=== PATIENT | male | born 1945 | race Caucasian/White ===

== ENCOUNTER 2019-06-22 10:20 | Inpatient (IN) | payer OTHER ==
[~2019-06-22] VITALS: Ht 177.8 cm; Wt 87.5 kg
[~2019-06-22 10:20] MED LIST: AMLO5 PO; ATORVASTATIN CA40 MG PO; FURO40 PO; GLIP5 PO; LOSA25 PO; METO25 PO; Omeprazole20 M1 PO; POTA8 PO; VITAMIN D32000 UNIT PO
[2019-06-22 11:21] LABS: BASOPHILS PERCENT AUTO 1 % (0-2); EOSINOPHILS ABSOLUTE AUTO 0.08 K/mm3 (0.00-0.68); EOSINOPHILS PERCENT AUTO 1 % (0-6); Hematocrit 41.6 % (37.0-53.0); IMMATURE GRAN ABSOLUTE AUTO 0.08 K/mm3 (0.00-0.10); IMMATURE GRAN PERCENT AUTO 1 % (0-1); LYMPHOCYTES ABSOLUTE AUTO 1.75 K/mm3 (0.84-5.20); LYMPHOCYTES PERCENT AUTO 12 % (21-46); MONOCYTES ABSOLUTE AUTO 1.07 K/mm3 (0.16-1.47); MONOCYTES PERCENT AUTO 7 % (4-13); Mean Corpuscular HGB 28.1 pg (26.0-34.0); Mean Corpuscular HGB Conc 31.3 g/dL (31.5-36.5); Mean Corpuscular Volume 90 fL (80-100); Mean Platelet Volume 10.4 fL (9.1-12.4); NEUTROPHILS ABSOLUTE AUTO 12.15 K/mm3 (1.96-9.15); NEUTROPHILS PERCENT AUTO 80 % (41-73); Platelet Count 358 K/mm3 (150-400); RDW Coefficient Variation 13.2 % (11.7-14.2); RDW Standard Deviation 43.5 fL (35.1-46.3); Red Blood Cell Count 4.63 M/mm3 (4.30-5.90); White Blood Cell Count 15.23 K/mm3 (4.00-11.30)
[2019-06-22 11:37] LABS: Albumin, Blood 2.9 g/dL (3.4-5.0); Albumin/Globulin Ratio 0.6 (0.8-1.8); Bilirubin, Total 0.3 mg/dL (0.1-1.0); Bun/Creatinine Ratio 13.3 (12.0-20.0); Calcium, Blood 8.7 mg/dL (8.5-10.1); Creatinine, Blood 3.98 mg/dL (0.60-1.20); Globulin, Blood 5.1 g/dL (2.2-4.0); Potassium, Blood 5.9 mmol/L (3.5-5.5)
[2019-06-22 11:39] LABS: International Normalized Ratio 0.96; Prothrombin Time Results 10.3 Sec (9.7-11.5)
[2019-06-22 11:40] LABS: pH Blood Arterial 7.15 (7.35-7.45)
[2019-06-22 11:40] LABS: Troponin I 31.3 ng/mL (0.000-0.040)
[2019-06-22 13:29] LABS: Source, Urine Catheter
[2019-06-22 13:55] LABS: Bilirubin, Urine Neg (Neg); Blood, Urine 5+ (Neg); Glucose Qualitative, Urine 4+ (Neg); Ketones, Urine 1+ (Neg); Leukocyte Esterase, Urine Neg (Neg); Nitrite, Urine Neg (Neg); Protein, Urine 3+ (Neg); Urobilinogen, Urine NORM (Normal)
[2019-06-22 14:21] LABS: Appearance, Urine Clear (Clear); Color, Urine Pale Yellow (P-Yellow)
[2019-06-22 14:33] LABS: Amorphous Light (0-Heavy); Bacteria Few /hpf; Mucus Light (0-Heavy); Red Blood Cells, Urine Not Seen /hpf (0-2); Squamous Epithelial Cells Rare /hpf (Few); White Blood Cells, Urine Not Seen /hpf (0-5)
[2019-06-22 16:56] LABS: Albumin, Blood 3.2 g/dL (3.4-5.0); Albumin/Globulin Ratio 0.6 (0.8-1.8); Bilirubin, Total 0.3 mg/dL (0.1-1.0); Bun/Creatinine Ratio 13.9 (12.0-20.0); Calcium, Blood 8.9 mg/dL (8.5-10.1); Creatinine, Blood 2.73 mg/dL (0.60-1.20); Phosphorus, Blood 2.6 mg/dL (2.5-4.9); Potassium, Blood 4.9 mmol/L (3.5-5.5); Total Protein, Blood 8.2 g/dL (6.4-8.2)
[2019-06-22 17:00] LABS: Beta-hydroxybutyrate 5.3 mg/dL (0.2-2.8); Thyroid Stimulating Hormone 2.2 uIU/mL (0.360-4.800)
[2019-06-22 18:50] LABS: Calcium, Blood 8.7 mg/dL (8.5-10.1); Creatinine, Blood 2.78 mg/dL (0.60-1.20); Potassium, Blood 5.3 mmol/L (3.5-5.5)
--- NOTE | 2019-06-22 19:00 | NUR ---
SUMMARY PT ARRIVED TO ICU THIS AFTERNOON ON BIPAP. PT ALERT AND ORIENTED. DIALYSIS CATH WITH PIGTAIL ACCESS TO RIGHT FEMORAL VEIN. TR BAND TO RIGHT RADIAL ACCESS SITE. CARDIOLOGY ADMITTED PATIENT WITH NEPHROLOGY, COOKER OPERATOR AND HOSPITALIST CONSULTED. PT HAD URGENT DIALYSIS. ORIGINAL PLAN TO REMOVE 2 L BUT PT'S BLOOD PRESSURE ONLY TOLERATED [address] AFTERNO[address] NAIR, DR. AGUILERA, DR. WOLF AND DR. MAXWELL ALL TO BEDSIDE FOR ASSESSMENTS. SEE NOTES AND ORDERS. PRESSURES AND FIO2 TITRATED DOWN ON BIPAP AND LUNG SOUNDS IMPROVING. ATTEMPTED BREAKS FROM BIPAP AND PT ONLY TOLERATES SHORT BREAKS BEFORE HE BEGINS TO BE MORE TACHYPNEIC AND HAS DECREASED OXYGEN SATURATION. SEE REPEAT ASSESSMENTS/VITALS FLOWSHEET. SINCE COMPLETION OF DIALYSIS, VITALS STABLE. TR BAND DEFLATED, NO COMPLICATIONS. PT DEMONSTRATES KNOWLEDGE OF EDUCATION ON RESTRICTIONS FOR TR BAND AND FEMORAL ACCESS SITE AND HAS EXPRESSED NEEDS APPROPRIATELY. PULSES IN ALL EXTREMITIES CONSISTENT WITH INITIAL ASSESSMENT. PT HAS DENIED CHEST PAIN SINCE ARRIVAL. FAMILY IN AND OUT OF ROOM THROUGHOUT AFTERNOON.
--- NOTE | 2019-06-22 19:15 | NUR ---
REPORT TO REDDY LOGAN TO ASSUME CARE
--- NOTE | 2019-06-22 19:30 | NUR ---
ASSESSMENT/ASSUMED CARE PT SITTING UP IN BED WITH BIPAP ON. HAD EMESIS. REMOVED BIPAP AND PLACED ON NC AT 4 LITERS. MED WITH ZOFRAN 4MG. PT DENIES CHEST PAIN OR PRESSURE. STATES,"THE NAUSEA COMES AND GOES". RT PLACED PT ON OXMIZER AT 15 LITERS FOR SPO2 87%. LUNGS COARSE CRACKLES AND DECREASED IN THE BASES. DENIES SOB. PRODUCTIVE COUGH THICK PINK TINGED. HEART RATE REGULAR. BP STABLE. RIGHT WRIST WITH TR BAND ON BUT DEFLATED. SITE CLEAR. IV 20G TO RIGHT HAND SALINE LOCKED, FLUSHED WITHOUT DIFFICULTY. 18G TO LEFT AC SALINE LOCKED, FLUSHED WITHOUT DIFFICULTY. DIALYSIS CATH TO RIGHT GROIN WITH IV PIGTAIL. DIALYSIS PORTS CLAMPED AND WRAPPED WITH COBAN. IV PIGTAIL FLUSHED WITHOUT DIFFICULTY AFTER LABS DRAWN. GARCIA CATH PATENT AND DRAINING SMALL AMT YELLOW URINE. GARCIA BAG ON ICE FOR 24 HR URINE. EDEMA NOTED TO LOWER EXT. LINEN CHANGED. PT REPORTS IMPROVMENT OF NAUSEA AFTER ZOFRAN. FAMILY TO BEDSIDE
--- NOTE | 2019-06-22 20:27 | NUR ---
PT SITTING UP IN BED WATCHING TV, DENEIS PAIN. TR BAND REMOVED AND OCC DRSG APPLIED.
--- NOTE | 2019-06-22 21:12 | NUR ---
CRITACAL LABS DR GOMEZ NOTIFIED REGARDING CRITICAL LACTIC ACID 4.7 AND TROPONIN >200.00. MD CAME TO ROOM AND EVAL PATIENT. ORDERS FOR REPEAT LACTIC ACID IN AM.
--- NOTE | 2019-06-23 04:08 | NUR ---
REASSESSMENT PT AWAKE AND COUGHING. C/O NAUSEA, MED WITH ZOFRAN. ORAL CARE DONE. PT MOVING AND TURNING SELF IN BED.
--- NOTE | 2019-06-23 05:55 | NUR ---
SHIFT SUMMARY PT RESTING QUIETLY. MED WITH ZOFRAN TWICE DURING THE NIGHT DUE TO N/V. OFF BIPAP FOR THE NIGHT DUE TO N/V. TITRATED O2 DOWN FROM 10 LITERS VIA OXMIZER TO 6 LITERS. RESP EVEN AND NONLABORED. PT DENIES SOB. OCC PRODUCTIVE COUGH WITH THICK PINK SPUTUM. HEART RATE REGULAR. DENIES CP OR PRESSURE. BP STABLE. RIGHT WRIST TR SITE WITH OCC DRSG INTACT. NO BLEEDING OR HEMATOMA. ARM BOARD IN PLACE. DIALYSIS CATH TO RIGHT GROIN, SITE CLEAR. REPORT TO ON COMING NURSE
[2019-06-23 06:01] LABS: BASOPHILS ABSOLUTE AUTO 0.02 K/mm3 (0.00-0.23); BASOPHILS PERCENT AUTO 0 % (0-2); EOSINOPHILS PERCENT AUTO 0 % (0-6); Hematocrit 33.8 % (37.0-53.0); Hemoglobin 10.9 g/dL (13.5-17.5); IMMATURE GRAN ABSOLUTE AUTO 0.11 K/mm3 (0.00-0.10); IMMATURE GRAN PERCENT AUTO 1 % (0-1); LYMPHOCYTES ABSOLUTE AUTO 1.19 K/mm3 (0.84-5.20); LYMPHOCYTES PERCENT AUTO 6 % (21-46); MONOCYTES ABSOLUTE AUTO 1.62 K/mm3 (0.16-1.47); MONOCYTES PERCENT AUTO 8 % (4-13); Mean Corpuscular HGB 27.9 pg (26.0-34.0); Mean Corpuscular HGB Conc 32.2 g/dL (31.5-36.5); Mean Platelet Volume 10.1 fL (9.1-12.4); NEUTROPHILS ABSOLUTE AUTO 16.86 K/mm3 (1.96-9.15); NEUTROPHILS PERCENT AUTO 85 % (41-73); Platelet Count 282 K/mm3 (150-400); RDW Coefficient Variation 13.5 % (11.7-14.2); RDW Standard Deviation 42.1 fL (35.1-46.3)
[2019-06-23 06:02] LABS: Mean Corpuscular Volume 87 fL (80-100)
[2019-06-23 06:25] LABS: Albumin, Blood 2.5 g/dL (3.4-5.0); Albumin/Globulin Ratio 0.6 (0.8-1.8); Bilirubin, Total 0.4 mg/dL (0.1-1.0); Bun/Creatinine Ratio 12.7 (12.0-20.0); Calcium, Blood 8.4 mg/dL (8.5-10.1); Creatinine, Blood 4.33 mg/dL (0.60-1.20); Globulin, Blood 4.4 g/dL (2.2-4.0); Magnesium, Blood 2.2 mg/dL (1.6-2.4); Phosphorus, Blood 4.5 mg/dL (2.5-4.9); Potassium, Blood 5.1 mmol/L (3.5-5.5); Total Protein, Blood 6.9 g/dL (6.4-8.2); Uric Acid, Blood 7.1 mg/dL (3.5-7.2)
--- NOTE | 2019-06-23 08:06 | NUR ---
ASSESSMENT- PT AWAKE, ALERT, DENIES COMPLAINTS, NO CP OR SOB. RESPIRATIONS UNLABORED. NSR, BP STABLE. RIGHT WRIST SPLINT, RIGHT RADIAL SITE DI, NO NUMBNESS/TINGLING, FINGERS WARM, SENSATION INTACT. STATES NO NAUSEA, C/O HUNGER. TAKING ICE CHIPS. UO VIA GARCIA CLEAR YELLOW. PIV X 2 INTACT. RIGHT FEMORAL MARHUKAR CATH DI. ABLE TO REPOSITION SELF IN BED. SCDS ON.
[2019-06-23] MEDS ORDERED: FAMO20 PO (10:24)
[2019-06-23] MEDS ORDERED: METO50ER PO (10:33)
[2019-06-23] MEDS ORDERED: TRULICITY1.5 MG/0.5 (10:40)
--- NOTE | 2019-06-23 11:30 | NUR ---
DR. NAIR HERE-ORDERS FOR TRANSFER. AM CARE-BATH DONE. ABLE TO ASSIST WITH TURNING FOR LINEN CHANGE. UPDATE TO DR. WOLF-PLANS FOR PERMACATH TOMORROW, DIALYSIS TODAY. CAN EAT
--- NOTE | 2019-06-23 12:30 | NUR ---
DR. WILEY HERE-UDPATED. SEE ORDERS.
--- NOTE | 2019-06-23 13:30 | NUR ---
DR. AGUILERA HERE-ASSESSED PT. PT DENIES COMPLAINTS. POOR APPETITE BUT DENIES NAUSEA. TO DIALYSIS. CONSULTED BY DR. WOLF-PLANS FOR PERMACATH PLACEMENT TODAY AFTER DIALYSIS.
--- NOTE | 2019-06-23 16:33 | NUR ---
PT RETURNED FROM DIALYSIS. AWAKE, ALERT, STATES HAD SOME SOB AND LIGHTHEADEDNESS IN DIALYSIS, RESOLVED NOW. NSR. LUNGS CLEAR, RESPIRATIONS UNLABORED. PRODUCTIVE COUGH-DARK BROWN OLD BLOOD SMALL AMOUNT. MAINTAINING OXYGEN SATURATIONS WITH 2 L/MIN. RIGHT RADIAL SITE DI. SITE RIGHT FEMORAL DI
--- NOTE | 2019-06-23 16:58 | NUR ---
DR. NEWBERRY HERE-EXPLAINED PERMACATH. PT AGREEABLE. VSS
--- NOTE | 2019-06-23 17:59 | NUR ---
PT DENIES COMPLAINTS. VSS. PLAN FOR LINE PLACEMENT. URINE COLLECTION BEING DONE
--- NOTE | 2019-06-23 18:10 | NUR ---
REPORT TO RAILROAD INSPECTOR STAFF. PT TO PROCEDURE LAB
--- NOTE | 2019-06-23 18:37 | NUR ---
Per admit trigger, I met with pt who was isabellane in room. He reports a good outcome to cardiac intervention and believes he will be discharged "in another day or two." He smiled easily and denied concerns. I offered prayer and continued support from chief innovation officer services.
--- NOTE | 2019-06-23 19:35 | NUR ---
ASSESSMENT/ASSUMED CARE PT BACK FROM PRODUCTION OPERATIONS INSPECTOR. DIALYSIS CATH TO RIGHT IJ. BLEEDING FROM SECONDARY INCISION SITE. PRESSURE HELD FOR 5 MIN AND PRESSURE DRSG APPLIED WITH 2 LB WT. RIGHT WRIST SMALL HEMATOMA NOTED. PRESSURE HELD AND REDUCED. ARM BOARD ON. RIGHT GROIN SITE WITH MARINO DRSG WITH BLOODY DRAINAGE, MARKED DRAINAGE. GROIN SOFT TO PALPATION. LUNGS CLEAR BUT DECREASED IN THE BASES ON 2 LITERS O2 VIA NC. HEART RATE REGULAR. BP STABLE. IV 20G TO RIGHT HAND SALINE LOCKED, FLUSHED WITHOUT DIFFICULTY. IV 18G TO LEFT AC SALINE LOCKED, FLUSHED WITHOUT DIFFICULTY. GARCIA CATH PATENT WITH SCANT AMT YELLOW URINE IN TUBE. 1+ EDEMA TO BILAT LOWER EXT. PT DENIES PAIN OR DISCOMFORT. FAMILY TO BEDSIDE.
[2019-06-23 19:59] LABS: Protein, Urine Quantitative 443.4 mg/dL (0.0-11.9)
--- NOTE | 2019-06-23 20:00 | NUR ---
DR ROHITH NEWBERRY TO ROOM. EVAL BLEEDING TO RIGHT SC DIALYSIS SITE AND RIGHT GROIN. ANSWERED QUESTIONS.
--- NOTE | 2019-06-23 20:30 | NUR ---
SITE ASSESSMENT RIGHT SC DIALYSIS SITE STABLE, NO BLEEDING. RIGHT GROIN STABLE, NO BLEEDING. SITE SOFT TO PALPATION. RIGHT WRIST STABLE. HOB UP 45 DEGREES. PT GIVEN DINNER. ARM BOARD TO RIGHT WRIST.
[2019-06-24 01:06] LABS: HBSAG SCREEN Negative (Negative); HEP A AB, IGM Negative (Negative); HEP B CORE AB, IGM Negative (Negative); HEP C VIRUS AB <0.1 (0.0-0.9)
--- NOTE | 2019-06-24 04:06 | NUR ---
REASSESSMENT PT RESTLESS IN BED, PULLING BLANKET OFF. STATES,"IT'S TO ELECTRIC MOTOR AND GENERATOR ASSEMBLER HERE". BLEEDING NOTED TO DIALYSIS CATH TO RIGHT CHEST. DRSG REMOVED AND PRESSURE HELD. NEW STEERI-STRIP, MARINO DRSG AND COVERED WITH GAUZE DRSG. 2 LB WT APPLIED. RIGHT WRIST AND GROIN STABLE. IV LEFT AC LEAKING, DC'D INTACT. LABS DRAWN. LINEN CHANGED. PT DENIES PAIN OR DISCOMFORT
[2019-06-24 04:21] LABS: Hematocrit 30.9 % (37.0-53.0); Hemoglobin 10.1 g/dL (13.5-17.5)
[2019-06-24 04:44] LABS: Albumin, Blood 2.4 g/dL (3.4-5.0); Albumin/Globulin Ratio 0.6 (0.8-1.8); Bilirubin, Total 0.4 mg/dL (0.1-1.0); Creatinine, Blood 4.76 mg/dL (0.60-1.20); Globulin, Blood 4.2 g/dL (2.2-4.0); Magnesium, Blood 2.2 mg/dL (1.6-2.4); Potassium, Blood 4.5 mmol/L (3.5-5.5); Total Protein, Blood 6.6 g/dL (6.4-8.2)
--- NOTE | 2019-06-24 05:16 | NUR ---
SHIFT SUMMARY PT RESTING QUIETLY. DENIES PAIN OR DISCOMFORT. PRESSURE HELD TO DIALYSIS CATH TO RIGHT CHEST WALL TWICE DURING THE NIGHT DUE TO BLEEDING. DRSG AT THIS TIME CD&I. RIGHT WRIST TR SITE STABLE SOFT TO PALPATION, BRUISING NOTED. ARM BOARD ON. CONT TO REMIND PT NOT TO USE RIGHT ARM. RIGHT GROIN STABLE NO FUTHER BLEEDING NOTED AFTER COMING BACK FROM STOCK PULLER. LUNGS REMAIN CLEAR BUT DECREASED IN THE BASES ON 2 LITERS O2 VIA NC. HEART RATE STABLE IN THE 90'S WITH STABLE BP. PT TURNING AND MOVING SELF IN BED. NO NAUSEA DURING THE NIGHT. GARCIA CATH WITH SCANT YELLOW URINE. REPORT TO ON COMING NURSE
--- NOTE | 2019-06-24 06:17 | NUR ---
DR WOLF INTO SEE PT. DIALYSIS TODAY
--- NOTE | 2019-06-24 09:05 | NUR ---
PT TRANSPORTED TO DIALYSIS VIA HIS BED WITH THIS AUTHOR AT 0856. FTF REPORT GIVEN TO Felicia GONZALES RN.
--- NOTE | 2019-06-24 12:20 | NUR ---
REASSESSMENT: A&O X 3, FATIGUED S/P DIALYSIS. DENIES PAIN, CP, N/V. HYPOTENSIVE 91/72, NO S/S OF BLEEDING FROM R GROIN, R WRIST, OR R VAS CATH SITES. SITTING UP EATING LUNCH, FAMILY AT BEDSIDE. O2 @ 2 L/MIN NC, NO COUGH, LUNGS CTAB. GARCIA DRAINING SMALL AMT CLEAR YELLOW URINE. PLAN IS D/C TO SNF OR [facility].
--- NOTE | 2019-06-24 12:30 | NUR ---
DR. WHITLEY AT BEDSIDE. NO STATUS CHANGE PT IS SLIGHTLY HYPOTENSIVE.
--- NOTE | 2019-06-24 13:09 | NUR ---
PT RETURNED FROM DIALYSIS AT 1210 VIA HIS BED. PER RN REPORT, 1.2 L WAS REMOVED AND PT TOLERATED WELL.
--- NOTE | 2019-06-24 14:02 | NUR ---
RECEIVED CALL FROM CARDIAC OFFICE THAT PT HAS BEEN APPROVED FOR ZOLL LIFE VEST, TO BE FITTED PRIOR TO D/C HOME.
--- NOTE | 2019-06-24 14:30 | NUR ---
LEFT MESSAGE WITH Sandra GARRETT IN D/C PLANNING ABOUT PT RECEIVING APPROVAL FOR ZOLL LIFE VEST UPON D/C. THIS AUTHOR EXPRESSED CONCERN THAT THIS MAY CHANGE PATIENT'S D/C PLAN AND WANTED TO GIVE NOTIFICATION EARLY IN THE D/C PROCESS.
--- NOTE | 2019-06-24 18:02 | NUR ---
Lungs clear t/o, Tele sinus at 96 per monitor car operator, denies chest pain or pressure. Pt post HD today, states " I feel a lot better." No changes from initial shift assessment in from ICU. Skin overall intact. Pt with no complaints of pain, able to adjust in bed to comfort. Using call light appropriately to make needs known.
--- NOTE | 2019-06-24 18:02 | NUR ---
Pt arrival to PCU at 1710 with CLIENT TECHNOLOGIES SPECIALIST at bedside. Pt alert and oriented, nauseated at time of arrival. Zofran and pepcid given per orders with stated relief. VSS. No acute concerns to note.
--- NOTE | 2019-06-24 19:55 | NUR ---
Shift Summary Pt with no acute events from time of transfer to time of change of shift. Pt with one event of nausea; medicated per emar and relief noted by pt. No events on tele. VSS. no acute changes, oriented but drowsey since arrival. when awake, pt responds appropriately. Report given to oncoming NOC RN who assumes care.
--- NOTE | 2019-06-24 23:34 | NUR ---
received report from day nurse, bed in low position, 1L via nc, bed in low position, sleepy but alert when awake, sitting up talking to friends when assessed, denied pain, currently resting quietly, when asked stated he had not had a bm since thursday, day staff recorded one, medicated as prescribed, n acute events noted thus far this shift, will continue to monitor and treat until share bsr with day nurse and pt
[2019-06-25 04:14] LABS: BASOPHILS ABSOLUTE AUTO 0.01 K/mm3 (0.00-0.23); BASOPHILS PERCENT AUTO 0 % (0-2); EOSINOPHILS PERCENT AUTO 0 % (0-6); Hematocrit 25.7 % (37.0-53.0); Hemoglobin 8.3 g/dL (13.5-17.5); IMMATURE GRAN ABSOLUTE AUTO 0.14 K/mm3 (0.00-0.10); IMMATURE GRAN PERCENT AUTO 1 % (0-1); LYMPHOCYTES ABSOLUTE AUTO 1.58 K/mm3 (0.84-5.20); LYMPHOCYTES PERCENT AUTO 8 % (21-46); MONOCYTES ABSOLUTE AUTO 2.58 K/mm3 (0.16-1.47); MONOCYTES PERCENT AUTO 13 % (4-13); Mean Corpuscular HGB 28.1 pg (26.0-34.0); Mean Corpuscular HGB Conc 32.3 g/dL (31.5-36.5); Mean Corpuscular Volume 87 fL (80-100); Mean Platelet Volume 10.8 fL (9.1-12.4); NEUTROPHILS PERCENT AUTO 79 % (41-73); Platelet Count 235 K/mm3 (150-400); RDW Coefficient Variation 13.3 % (11.7-14.2); RDW Standard Deviation 42.1 fL (35.1-46.3); Red Blood Cell Count 2.95 M/mm3 (4.30-5.90); White Blood Cell Count 20.51 K/mm3 (4.00-11.30)
[2019-06-25 04:32] LABS: Albumin, Blood 2.2 g/dL (3.4-5.0); Anion Gap 9 mmol/L (6-16); Blood Urea Nitrogen 57 mg/dL (8-24); Bun/Creatinine Ratio 11.8 (12.0-20.0); CO2, Blood 30 mmol/L (21-32); Calcium, Blood 7.7 mg/dL (8.5-10.1); Chloride, Blood 94 mmol/L (98-108); Creatinine, Blood 4.83 mg/dL (0.60-1.20); Glomerular Filtration Rate 13 (60-); Glucose, Blood 225 mg/dL (70-99); Magnesium, Blood 2.2 mg/dL (1.6-2.4); Phosphorus, Blood 4.5 mg/dL (2.5-4.9); Potassium, Blood 4.2 mmol/L (3.5-5.5); Sodium, Blood 133 mmol/L (136-145)
--- NOTE | 2019-06-25 06:52 | NUR ---
dr came in and ordered bladder training and that the sanderson be removed, denies pain, a+o, slept most of the shift with no acute changes in his status noted, sanderson draining scant amount of yellow urine, saline locked, 1L via nc, will continue to monitor and treat until share sr with day shift.
[2019-06-25 11:07] LABS: HEPATITIS C QUANTITATION HCV Not Detected IU/mL (.)
[2019-06-25 14:39] LABS: Percent Saturation 17.3 % (20.0-50.0)
--- NOTE | 2019-06-25 18:33 | NUR ---
PATIENT S/OX4, UP WITH SBA AND GB TO RESTROOM. VSS, ON RA. PATIENT HAD DIALYSIS TODAY, PERM CATH TO R CHEST. REPORT POOR APPETITE, ZOFRAN GIVEN X1 FOR UPSET STOMACH. SKIN INTACT. CALLS APPROPRATELY FOR ASSISTANCE.
--- NOTE | 2019-06-25 21:49 | NUR ---
report shared by day staff, pt doing well, no acute changes noted during day shift, call light in reach, saline locked, rm air, a+o, sitting up in bed talking to a friend, vss, see shift assessment, medicated as prescribed, will continue to monitor and treat as appropriate
[2019-06-26 04:26] LABS: Hematocrit 29.1 % (37.0-53.0); Hemoglobin 9.4 g/dL (13.5-17.5)
[2019-06-26 04:44] LABS: Albumin, Blood 2.3 g/dL (3.4-5.0); Anion Gap 12 mmol/L (6-16); Blood Urea Nitrogen 62 mg/dL (8-24); Bun/Creatinine Ratio 12.7 (12.0-20.0); CO2, Blood 28 mmol/L (21-32); Calcium, Blood 7.5 mg/dL (8.5-10.1); Chloride, Blood 93 mmol/L (98-108); Glomerular Filtration Rate 12 (60-); Glucose, Blood 200 mg/dL (70-99); Phosphorus, Blood 4.9 mg/dL (2.5-4.9); Potassium, Blood 3.7 mmol/L (3.5-5.5); Sodium, Blood 133 mmol/L (136-145)
--- NOTE | 2019-06-26 07:16 | NUR ---
a+o, call light in reach, bed in low position, saline locked, stemi site cdi, resting comfortably, vss, bsr shared with day staff and pt
[2019-06-26 08:40] LABS: BASOPHILS ABSOLUTE AUTO 0.03 K/mm3 (0.00-0.23); BASOPHILS PERCENT AUTO 0 % (0-2); EOSINOPHILS ABSOLUTE AUTO 0.06 K/mm3 (0.00-0.68); EOSINOPHILS PERCENT AUTO 0 % (0-6); Hematocrit 29.1 % (37.0-53.0); Hemoglobin 9.4 g/dL (13.5-17.5); IMMATURE GRAN ABSOLUTE AUTO 0.18 K/mm3 (0.00-0.10); IMMATURE GRAN PERCENT AUTO 1 % (0-1); LYMPHOCYTES ABSOLUTE AUTO 2.73 K/mm3 (0.84-5.20); LYMPHOCYTES PERCENT AUTO 15 % (21-46); MONOCYTES ABSOLUTE AUTO 2.86 K/mm3 (0.16-1.47); MONOCYTES PERCENT AUTO 16 % (4-13); Mean Corpuscular HGB 28.1 pg (26.0-34.0); Mean Corpuscular HGB Conc 32.3 g/dL (31.5-36.5); Mean Corpuscular Volume 87 fL (80-100); Mean Platelet Volume 11.1 fL (9.1-12.4); NEUTROPHILS ABSOLUTE AUTO 12.42 K/mm3 (1.96-9.15); NEUTROPHILS PERCENT AUTO 68 % (41-73); Platelet Count 225 K/mm3 (150-400); RDW Standard Deviation 43.8 fL (35.1-46.3); Red Blood Cell Count 3.35 M/mm3 (4.30-5.90); White Blood Cell Count 18.28 K/mm3 (4.00-11.30)
--- NOTE | 2019-06-26 18:37 | NUR ---
SHIFT SUMMARY PT HAS DECLINED ANY CP OR DISCOMFORT. LUNG SOUNDS ARE DIM THROUGHOUT WITH SLIGHT COARSNESS IN BASES, PT IS ON ROOM AIR. VITALS HAVE REMAINED STABLE. TELEMETRY SHOWS PT IN NSR. JIMBO CALLED ABOUT THE [facility] AND IT REQUIRES FITTING DAY OF DISCHARGE DATE. DR GEORGES REPORTED IT'S POSSIBLE THE PT MAY D/C TOMORROW IF WBC COUNT IMPROVES, BUT PT MAY NEED TO STAY LONGER IF NO IMPROVEMENT. THIS INFO WAS PASSED ON TO JIMBO. GROIN SITE IS SOFT. PT DID NOT RECEIVE DIALYSIS TODAY PER ORDERS.
[2019-06-27 03:57] LABS: Hematocrit 28.7 % (37.0-53.0); Hemoglobin 9.3 g/dL (13.5-17.5); Mean Corpuscular HGB 27.9 pg (26.0-34.0); Mean Corpuscular HGB Conc 32.4 g/dL (31.5-36.5); Mean Corpuscular Volume 86 fL (80-100); Mean Platelet Volume 11.2 fL (9.1-12.4); Platelet Count 232 K/mm3 (150-400); RDW Coefficient Variation 13.6 % (11.7-14.2); RDW Standard Deviation 41.7 fL (35.1-46.3); Red Blood Cell Count 3.33 M/mm3 (4.30-5.90); White Blood Cell Count 17.69 K/mm3 (4.00-11.30)
[2019-06-27 04:20] LABS: Albumin, Blood 2.3 g/dL (3.4-5.0); Anion Gap 13 mmol/L (6-16); Blood Urea Nitrogen 79 mg/dL (8-24); Bun/Creatinine Ratio 11.9 (12.0-20.0); CO2, Blood 28 mmol/L (21-32); Calcium, Blood 7.2 mg/dL (8.5-10.1); Chloride, Blood 93 mmol/L (98-108); Creatinine, Blood 6.62 mg/dL (0.60-1.20); Glomerular Filtration Rate 9 (60-); Glucose, Blood 145 mg/dL (70-99); Magnesium, Blood 2.2 mg/dL (1.6-2.4); Phosphorus, Blood 6.3 mg/dL (2.5-4.9); Potassium, Blood 3.4 mmol/L (3.5-5.5); Sodium, Blood 134 mmol/L (136-145)
--- NOTE | 2019-06-27 06:37 | NUR ---
SHIFT SUMMARY PT A&O; DENIES CHEST PAIN; VSS; O2 SATS >93 ON RA; NO ACUTE CHANGES THIS SHIFT; SLEPT SEVERAL HOURS IN BETWEEN INTERVENTIONS; AT BEDSIDE THIS AM; DENIES NEEDS AT THIS TIME; CALL LIGHT IN REACH; BED IN LOWEST POSITION; WILL CONTINUE TO MONITOR CLOSELY UNTIL HAND OFF TO DAY SHIFT RN.
[2019-06-27 07:07] LABS: ANTIGLOMERULAR BM AB 2 units (0-20)
[2019-06-27 13:07] LABS: ANA DIRECT Negative (Negative); ANTIMYELOPEROXIDASE (MPO) ABS <9.0 U/mL (0.0-9.0); ANTIPROTEINASE 3 (PR-3) ABS <3.5 U/mL (0.0-3.5); ATYPICAL PANCA <1:20 titer (Neg:<1:20); CYTOPLASMIC (C-ANCA) <1:20 titer (Neg:<1:20); PERINUCLEAR (P-ANCA) <1:20 titer (Neg:<1:20)
[2019-06-27 16:06] LABS: A/G RATIO 0.9 (0.7-1.7); ALBUMIN 2.8 g/dL (2.9-4.4); ALPHA-1-GLOBULIN 0.3 g/dL (0.0-0.4); BETA GLOBULIN 1.1 g/dL (0.7-1.3); GAMMA GLOBULIN 0.9 g/dL (0.4-1.8); GLOBULIN, TOTAL 3.3 g/dL (2.2-3.9); IMMUNOGLOBULIN A, QN, SERUM 663 mg/dL (61-437); IMMUNOGLOBULIN G, QN, SERUM 877 mg/dL (700-1600); IMMUNOGLOBULIN M, QN, SERUM 92 mg/dL (15-143); M-SPIKE Not Observed g/dL (Not Observed); PROTEIN, TOTAL, SERUM 6.1 g/dL (6.0-8.5)
--- NOTE | 2019-06-27 18:45 | NUR ---
SHIFT SUMMARY PT IS A&O X4, DECLINES ANY CP. PT WENT TO DIALYSIS TODAY AND TOLERATED WELL. PLAN IS TO POTENTIALLY DISCHARGE TOMORROW IF OUTPATIENT DIALYSIS GETS SET UP. [facility] WAS FITTED TONIGHT IN PREPERATION FOR DISCHARGE. VITALS HAVE REMAINED STABLE. PT WAS STATUS CHANGED TO MEDICAL WITHOUT TELE. NO AVAILABLE MEDICAL BEDS AT THIS TIME.
--- NOTE | 2019-06-27 19:40 | NUR ---
ASSUMED CARE: RECEIVED REPORT FROM REDDY TATUM. ASSUMED CARE OF PT. IN NO ACUTE DISTRESS AT THIS TIME, RESTING COMFORTABLY. DENIES ANY NEEDS AT THIS TIME. CALL LIGHT AND POSSESSIONS IN REACH, WILL CONTINUE TO MONITOR.
[2019-06-28 03:58] LABS: BASOPHILS ABSOLUTE AUTO 0.03 K/mm3 (0.00-0.23); BASOPHILS PERCENT AUTO 0 % (0-2); EOSINOPHILS ABSOLUTE AUTO 0.55 K/mm3 (0.00-0.68); EOSINOPHILS PERCENT AUTO 3 % (0-6); Hemoglobin 8.9 g/dL (13.5-17.5); IMMATURE GRAN ABSOLUTE AUTO 0.26 K/mm3 (0.00-0.10); IMMATURE GRAN PERCENT AUTO 2 % (0-1); LYMPHOCYTES ABSOLUTE AUTO 2.01 K/mm3 (0.84-5.20); LYMPHOCYTES PERCENT AUTO 13 % (21-46); MONOCYTES ABSOLUTE AUTO 3.04 K/mm3 (0.16-1.47); MONOCYTES PERCENT AUTO 19 % (4-13); Mean Corpuscular HGB 27.8 pg (26.0-34.0); Mean Corpuscular HGB Conc 31.8 g/dL (31.5-36.5); Mean Corpuscular Volume 88 fL (80-100); Mean Platelet Volume 10.9 fL (9.1-12.4); NEUTROPHILS ABSOLUTE AUTO 10.24 K/mm3 (1.96-9.15); NEUTROPHILS PERCENT AUTO 64 % (41-73); Platelet Count 232 K/mm3 (150-400); RDW Coefficient Variation 13.7 % (11.7-14.2); RDW Standard Deviation 42.7 fL (35.1-46.3); White Blood Cell Count 16.13 K/mm3 (4.00-11.30)
[2019-06-28 04:16] LABS: Bun/Creatinine Ratio 9.9 (12.0-20.0); Calcium, Blood 7.7 mg/dL (8.5-10.1); Creatinine, Blood 5.15 mg/dL (0.60-1.20); Potassium, Blood 3.8 mmol/L (3.5-5.5)
--- NOTE | 2019-06-28 07:30 | NUR ---
PT RESTING IN BED COMFORTABLY, IN NO ACUTE DISTRESS. VS STABLE, SLEPT T/O SHIFT. WAS MONITORED EVERY 1-2 HOURS WITH NEEDS MET, DENIES ANY NEEDS AT THIS TIME. CALL LIGHT AND POSSESSIONS IN REACH, BED IN LOW POSITION.
[2019-06-28] MEDS ORDERED: ASPI81CH PO (09:46)
[2019-06-28] MEDS ORDERED: LISI5 PO (09:46)
[2019-06-28] MEDS ORDERED: TICA90TA PO (09:47)
[2019-06-28] MEDS ORDERED: AZIT250 PO (09:49)
[2019-06-28] MEDS ORDERED: CEFU500T30 PO (09:52)
--- NOTE | 2019-06-28 16:48 | NUR ---
DISCHARGE SUMMARY PT EDUCATED ON DISCHARGE INSTRUCTIONS, MEDICATIONS AND FOLLOW UP APPOINTMENTS. PT MEDICATIONS CALLED INTO [facility] PER PT REQUEST. RIGHT WRIST SITE AND RIGHT GROIN SITE; NO CHANGES T/O SHIFT. VSS. LIFE VEST IN PLACE. PT LEFT ROOM VIA WHEELCHAIR AT 1340, PT STABLE UPON DISCAHRGE.
== END 2019-06-28 13:40 | disposition home or self-care (01) | DRG 853 ==
LOC: ER 10:20 → ICUW 10:25 → PCU 06-24 17:15
PROVIDERS: Emergency Medicine; Hospitalist; Internal Medicine; Internal Medicine Nephrology; ADMIT Internal Medicine Interventional Cardiology
PROC: 4A023N7 Measurement of Cardiac Sampling and Pressure, Left Heart, Percutaneous Approach (ICD-10-PCS; principal; 2019-06-22)
PROC: 027135Z Dilation of Coronary Artery, Two Arteries with Two Drug-eluting Intraluminal Devices, Percutaneous Approach (ICD-10-PCS; 2019-06-22)
PROC: B2111ZZ Fluoroscopy of Multiple Coronary Arteries using Low Osmolar Contrast (ICD-10-PCS; 2019-06-22)
PROC: 0JH63XZ Insertion of Tunneled Vascular Access Device into Chest Subcutaneous Tissue and Fascia, Percutaneous Approach (ICD-10-PCS; 2019-06-23)
PROC: 5A1D70Z Performance of Urinary Filtration, Intermittent, Less than 6 Hours Per Day (ICD-10-PCS; 2019-06-23)
PROC: 5A1D70Z Performance of Urinary Filtration, Intermittent, Less than 6 Hours Per Day (ICD-10-PCS; 2019-06-24)
PROC: 5A1D70Z Performance of Urinary Filtration, Intermittent, Less than 6 Hours Per Day (ICD-10-PCS; 2019-06-25)
PROC: 5A1D70Z Performance of Urinary Filtration, Intermittent, Less than 6 Hours Per Day (ICD-10-PCS; 2019-06-26)
DX: A41.9 Sepsis, unspecified organism (principal); I21.09 ST elevation (STEMI) myocardial infarction involving other coronary artery of anterior wall; I50.21 Acute systolic (congestive) heart failure; N18.6 End stage renal disease; J96.01 Acute respiratory failure with hypoxia; I13.0 Hypertensive heart and chronic kidney disease with heart failure and stage 1 through stage 4 chronic kidney disease, or unspecified chronic kidney disease; I13.2 Hypertensive heart and chronic kidney disease with heart failure and with stage 5 chronic kidney disease, or end stage renal disease; N17.9 Acute kidney failure, unspecified; E87.2 Acidosis; M62.82 Rhabdomyolysis; N18.3 Chronic kidney disease, stage 3 (moderate); E11.22 Type 2 diabetes mellitus with diabetic chronic kidney disease; Z79.4 Long term (current) use of insulin
CPT/HCPCS: 36415; 36430; 36556; 36558; 71045; 76770; 76937; 80048; 80053; 80069; 80074; 81001; 81050; 82010; 82550; 82607; 82728; 82746; 82784; 82803; 82947; 83036; 83516; 83520; 83540; 83550; 83605; 83735; 84100; 84145; 84156; 84165; 84443; 84484; 84550; 85014; 85018; 85025; 85027; 85347; 85610; 85730; 86038; 86256; 86334; 86335; 86850; 86900; 86901; 86920; 87040; 87522; 92978; 93005; 93010; 93306; 93458; 94660; 96374; 97110; 97116; 97162; 97165; 97535; 99152; 99153; 99285-25; A9270-GY; C1725; C1750; C1752; C1753; C1769; C1874; C1887; C1894; C9601; C9606; J0696; J0881; J1644; J1940; J2250; J2370; J2405; J3010; J7030; J7040; P9016; Q9967

== ENCOUNTER 2019-07-16 10:48 | Inpatient (IN) | payer OTHER ==
[~2019-07-16] VITALS: Ht 177.8 cm; Wt 83.1 kg
[~2019-07-16 10:48] MED LIST changes: +AZIT250 PO; +Aspir 8181 MG PO; +CEFU500T30 PO; +FAMO20 PO; +LISI5 PO; +METO50ER PO; +TICA90TA PO; +TRULICITY1.5 MG/0.5 SC
[2019-07-16 11:19] LABS: BASOPHILS ABSOLUTE AUTO 0.06 K/mm3 (0.00-0.23); BASOPHILS PERCENT AUTO 1 % (0-2); EOSINOPHILS ABSOLUTE AUTO 0.04 K/mm3 (0.00-0.68); EOSINOPHILS PERCENT AUTO 0 % (0-6); Hematocrit 23.1 % (37.0-53.0); IMMATURE GRAN ABSOLUTE AUTO 0.11 K/mm3 (0.00-0.10); IMMATURE GRAN PERCENT AUTO 1 % (0-1); LYMPHOCYTES ABSOLUTE AUTO 1.72 K/mm3 (0.84-5.20); LYMPHOCYTES PERCENT AUTO 13 % (21-46); MONOCYTES ABSOLUTE AUTO 1.02 K/mm3 (0.16-1.47); MONOCYTES PERCENT AUTO 8 % (4-13); Mean Corpuscular HGB 27.7 pg (26.0-34.0); Mean Corpuscular HGB Conc 30.3 g/dL (31.5-36.5); Mean Corpuscular Volume 91 fL (80-100); Mean Platelet Volume 10.1 fL (9.1-12.4); NEUTROPHILS ABSOLUTE AUTO 10.07 K/mm3 (1.96-9.15); NEUTROPHILS PERCENT AUTO 77 % (41-73); Platelet Count 446 K/mm3 (150-400); Red Blood Cell Count 2.53 M/mm3 (4.30-5.90); White Blood Cell Count 13.02 K/mm3 (4.00-11.30)
[2019-07-16 11:34] LABS: Albumin, Blood 2.1 g/dL (3.4-5.0); Albumin/Globulin Ratio 0.4 (0.8-1.8); Bilirubin, Total 0.4 mg/dL (0.1-1.0); Bun/Creatinine Ratio 14.6 (12.0-20.0); Calcium, Blood 8.3 mg/dL (8.5-10.1); Creatinine, Blood 3.49 mg/dL (0.60-1.20); Globulin, Blood 4.7 g/dL (2.2-4.0); Potassium, Blood 4.4 mmol/L (3.5-5.5); Total Protein, Blood 6.8 g/dL (6.4-8.2)
[2019-07-16 13:02] LABS: Adenovirus Not Detected (NOT DETECT); Bordetella pertussis Not Detected (NOT DETECT); Chlamydophila pneumoniae Not Detected (NOT DETECT); Coronavirus 229E Not Detected (NOT DETECT); Coronavirus HKU1 Not Detected (NOT DETECT); Coronavirus NL63 Not Detected (NOT DETECT); Coronavirus OC43 Detected (NOT DETECT); Human Metapneumovirus Not Detected (NOT DETECT); Human Rhinovirus/Enterovirus Not Detected (NOT DETECT); Influenza A/2009-H1 Not Detected (NOT DETECT); Influenza A/H1 Not Detected (NOT DETECT); Influenza A/H3 Not Detected (NOT DETECT); Influenza B Not Detected (NOT DETECT); Mycoplasma pneumoniae Not Detected (NOT DETECT); Parainfluenza Virus 1 Not Detected (NOT DETECT); Parainfluenza Virus 2 Not Detected (NOT DETECT); Parainfluenza Virus 3 Not Detected (NOT DETECT); Parainfluenza Virus 4 Not Detected (NOT DETECT); Respiratory Syncytial Virus Not Detected (NOT DETECT)
[2019-07-16] MEDS ORDERED: TOUJEO SOL300 UNIT/1 SC (13:24)
[2019-07-16] MEDS ORDERED: MIRALAX17 GM PO (13:25)
[2019-07-16 17:41] LABS: Test Name COVID-19
--- NOTE | 2019-07-16 18:23 | NUR ---
SHIFT SUMMARY 1325 RECEIVED PT TO PCU 3 FROM ER. PT ADMITTED FOR RESP FAILURE WITH HYPOXIA. RECEIVED REPORT FROM MEKA BLAKELY. PT TO ER VIA EMS WITH C/O FEVER, COUGH, AND "WEIRD BREATHING". PER REPORT, PT HAD FEVER AT HOME 99.9, BUT NONE NOTED HERE. PT WITH HX OF ESRD; ON DIALYSIS MWF, HAVING DIALYSIS YESTERDAY. PT ONLY VOIDING 1-2 X'S PER/DAY. HX OF [place] WITH STENTS PLACED 2 WKS AGO. BIOX IN ER MID 80'S ON RA. PT PLACED ON 2L NC AND CURRENTLY ON 1.5L. PER REPORT, PT IS POOR HISTORIAN AND LIVES WITH HIS BROTHER AND SISTER IN LAW. PT HAD BEEN SLEEPING UPRIGHT AT HOME D/T BEING UNABLE TO BREATHE AND SHALLOW BREATHING. SISTER IN LAW REPORTED PT HAS NOT BEEN EATING MUCH SINCE STENTS PLACED. PERMA CATH TO RCW. DIALYSIS ORDERED AND PT RECEIVED IN BEFORE BEING TX TO PCU 16 IN AIRBORN PRECAUTIONS. PT TOLERATED DIALYSIS WELL AND RECEIVED 1 UNIT PRBC'S WITH DIALYSIS. IV ABX CURRENTLY INFUSING PER EMAR. PT RESTING QUIETLY WATCHING TV. NO C/O. DENIED FURTHER NEEDS. UA STILL NEEDED; PT AWARE. SON TO COME IN AM TO ASSIST PT WITH HRT MX. CALL LT IN REACH.
--- NOTE | 2019-07-16 21:55 | NUR ---
PROVIDER CALLED DR WOLF REGARDING PT'S CONSISTENT SBP'S >100. UPDATED DR THAT PT HAD DIALYSIS TODAY, HAD NO FLUIDS INFUSING, AND IS ASYMPTOMATIC. ORDERS FOR MIDODRINE AND ORDERS TO HOLD AM METOPROLOL UNDER CERAIN PARAMETERS. SEE ORDERS AND NURE NOTIFY.
--- NOTE | 2019-07-17 00:05 | NUR ---
PROVIDER DR WOLF CALLED REGARDING POST MIDODRIN BP OF 85/48. PT ASYMPTOMATIC. NO FLUIDS. ESRD. NO ORDERS GIVEN AT THIS TIME.
--- NOTE | 2019-07-17 03:17 | NUR ---
DAYLIGHT SAVINGS TIME. TIME SWITCH FROM 0200 TO 0300. 0
[2019-07-17 04:35] LABS: Hematocrit 18.5 % (37.0-53.0)
[2019-07-17 04:48] LABS: Hemoglobin 5.6 g/dL (13.5-17.5)
[2019-07-17 04:54] LABS: Albumin, Blood 1.7 g/dL (3.4-5.0); Anion Gap 10 mmol/L (6-16); Blood Urea Nitrogen 63 mg/dL (8-24); Bun/Creatinine Ratio 19.3 (12.0-20.0); CO2, Blood 28 mmol/L (21-32); Calcium, Blood 7.5 mg/dL (8.5-10.1); Chloride, Blood 99 mmol/L (98-108); Creatinine, Blood 3.27 mg/dL (0.60-1.20); Glomerular Filtration Rate 20 (60-); Glucose, Blood 227 mg/dL (70-99); Magnesium, Blood 1.8 mg/dL (1.6-2.4); Phosphorus, Blood 3.5 mg/dL (2.5-4.9); Potassium, Blood 4.7 mmol/L (3.5-5.5); Sodium, Blood 137 mmol/L (136-145); Vancomycin, Random 14.5 ug/mL
--- NOTE | 2019-07-17 05:27 | NUR ---
END OF SHIFT SUMMARY P AXO, SOMEWHAT LETHARGIC. PT HAS CONTINUED TO BE HYPOTENSIVE. MULTIPLE CALLS TO DR WOLF, PT PLACED ON MIDODRINE. HGB DROPED SIGNIFICANTLY THIS SHIFT, ORDERS RECEIVED FOR A TOTAL OF 3UPRBC, 1U NOW AND 2U IN DIALYSIS. NO OBVIOUS SIGNS OF BLEEDING NOTED. PT HAS REMAINED ON 2 -3L NC, SPO2>94%. PT HS SLEPT T/O MAJORITY OF SHIFT. PT TO RECEIVE DIALYSIS TODAY. LUNGSOUNDS DIM, LITTLE WHEEZING NOTED. PT HAS BEEN ABLE TO EXPRESS NEEDS THIS SHIFT BUT DOES APPEAR FORGETFUL. PT IS NOT IMPULSIVE. HAS BEEN COOEPRATIVE WITH STAF. REMAINS IN AIRBORNE PRECAUTIONS FOR CORONAvirus rule out. will continue to monitor until shift change.
--- NOTE | 2019-07-17 07:00 | NUR ---
PROVIDER CALLED DR WOLF REGARDING PT'S DROP IN HGB TO <6. ORDERS RECEIVED FOR 1UPRBC NOW AND 2U PRBC DURING DIALYSIS.
--- NOTE | 2019-07-17 07:09 | NUR ---
PROVIDER WOLF TO ROOM. UPDATED ABOUT LACK OF STOOL THIS SHIFT, ORDERS RECEIVED FOR PROTONIX, CT ABD, AND STOOL GUIAC WELL A GI CONSULT IF GUIAC RETURN POSITIVE.
--- NOTE | 2019-07-17 08:43 | NUR ---
ASSUMED CARE OF PT AT 0830 Assumed care of pt at 0830 from Phil BLAKELY. Pt in airborne precautions due to r/o COVID-19. Pt recieiving PRBCs. Upon entering room, pump distally occluded. Pt 280 mL left to infuse. Pt pale and dusky in appearance. Tachypnic with RR 36-40. Hypotensive. Rate of blood increased. Pt on 3 LPM NC. SpO2 100%. Pt's son asked to visit. No N-95 masks or PAPR available. This RN premitted pt's son to visit for 5 minutes while wearing surgical mask. Son stated that pt's life vest battery is changed every morning between 8 and 9 am. Son regularly assists pt with this activity and offered to do it this morning. This RN allowed son to do this activity for pt. Fully charged battery shown on display. This RN discussed pt's condition with tanker driver Leslie. cnc service engineer Leslie to call Dr Rodriguez and update.
--- NOTE | 2019-07-17 08:55 | NUR ---
DR HUBBARD IN ROOM TO SEE PT Pt receiving blood at maximum rate on pump. Pt tolerating well. BP improved. Plan for H&H recheck after this unit of blood. Dr Hubbard states she would like pt moved to ICU. Disucussed that pt was recently admitted for STEMI and had stents placed to LAD and diag. Provider stated pt to stay on Brilinta. Hold aspirin and heparin at this time.
--- NOTE | 2019-07-17 09:00 | NUR ---
CERTIFIED NEURODIAGNOSTIC TECHNOLOGIST Delonda states she will provide dialysis for this patient this afternoon.
--- NOTE | 2019-07-17 09:25 | NUR ---
AM MEDS This RN attempted to give pt AM midodrine. Pt started coughing and choking after drinking water to take midodrine.
--- NOTE | 2019-07-17 09:52 | NUR ---
NEW ORDERS FROM DR HUBBARD AND TRANSFER TO ICU This RN placed call to Dr Hubbard to inquire about cardiology consultation for medication management. Provider also stated to consult GI. This RN spoke to Dr Frey. Dr Frey stated "Hold brilinta and aspirin for now". Provider stated he will be in to see pt this afternoon. GI consult called to answering service by recessing machine operator Denise.
--- NOTE | 2019-07-17 10:02 | NUR ---
FAMILY NOTIFIED OF TRANSFER This RN notified pt's son of transfer to ICU.
[2019-07-17 10:36] LABS: International Normalized Ratio 1.19; Prothrombin Time Results 12.6 Sec (9.7-11.5)
--- NOTE | 2019-07-17 10:36 | NUR ---
TRANSFERRED TO ICU AT 0940. BEDSIDE REPORT FROM JORDY BLAKELY. PT RESPONSES TO VERBAL STIMULI, LETHARGIC. KEEPS EYES CLOSED. STATES HE IS IN [facility] AND IT IS 2012. DENIES COMPLAINTS OTHER THAN BEING COLD. PT PALE. ECCHYMOSIS TO ABD, BILATERAL ARMS. DELAYED CAP REFILL. TACHPENIC, RESP RATE 40. LUNGS DIMINISHED IN BASES. MOVES EXTREMITIES. DARK STOOLS IN ATTENDS. WILL SEND FOR GUIAC. ABD SOFT, ROUND, NON TENDER. BT X 4. LIFE VEST IN PLACE. PT HYPOTENSIVE. TRANSFUSING 2ND UNIT OF PBRCS. PLAN FOR 2 ADDITIONAL UNITS c DIALYSIS AT APPROX 1330. PENDING CT SCAN. WILL CONTINUE TO MONITOR.
[2019-07-17 10:42] LABS: Albumin, Blood 1.8 g/dL (3.4-5.0); Albumin/Globulin Ratio 0.5 (0.8-1.8); Bilirubin, Direct 0.1 mg/dL (0.0-0.3); Bilirubin, Indirect 0.4 mg/dL (0.1-0.7); Bilirubin, Total 0.5 mg/dL (0.1-1.0); Globulin, Blood 3.7 g/dL (2.2-4.0); Total Protein, Blood 5.5 g/dL (6.4-8.2)
[2019-07-17 10:43] LABS: Percent Saturation 61.5 % (20.0-50.0)
--- NOTE | 2019-07-17 12:30 | NUR ---
PT SEEN BY GO NEELY AND HIEU. GI PLAN, MONITOR, NO INTERVENTIONS AT THIS TIME D/T PT BEING UNSTABLE FOR PROCEDURE. CARDIAC, OK FOR REMOVAL OF LIFE VEST, CONTINUE BRILLENTA. DOBUTAMINE STARTED FOR CARDIAC OUTPUT AND BP. WILL TITRATE FOR MAP>65. CONTINUE TO TREND H&H. LAB DRAW DUE NOW.
[2019-07-17 13:22] LABS: Hematocrit 21.5 % (37.0-53.0); Hemoglobin 6.9 g/dL (13.5-17.5)
[2019-07-17 14:31] LABS: Stool Occult Blood Guaiac 1 Pos (Neg)
--- NOTE | 2019-07-17 18:00 | NUR ---
SHIFT SUMMARY PT TRANSFERRED TO ICU THIS SHIFT. CONSULTING GROUPS, GI, CARDIOLOGY, SHIPS EQUIPMENT ENGINEER. PT TRANSFUSED 4 UNITS OF PRBCS THIS SHIFT. PICC LINE INSERTED TO GARTH. CURRENTLY TRANSFUSING LEVOPHED 15 MCG/MIN AND DOBUTAMINE 10 MCG/KG/MIN THROUGH PICC LINE. CONTINUED TO TITRATE FOR MAP >65. HR INCREASED FROM 80'S TO 110-120'S AFTER DOBUTAMINE GTT STARTED. PT REMAINED ON 1L O2 VIA NC. LUNGS DIMINISHED IN BASES c OCCASIONAL CRACKLES, DECREASED RATE OF PRBCS AT THAT TIME AND NOW RESOLVED. PT REMAINS PALE AND COOL. MENTATION IMPROVED, PT ORIENTED TO PLACE AND KNOWS PRESIDENT, DOES NOT KNOW YEAR. FOLLOWS SIMPLE DIRECTIONS. DENIES COMPLAINTS. PT HAD THREE SMALL BLACK TARRY STOOLS THIS SHIFT. SENT TO LAB FOR GUIAC, POSITIVE. DR ORTIZ AWARE. DIALYSIS POSTPONED TODAY, LUCIANO AWARE, PLAN FOR DIALYSIS TOMORROW IF STABLE. CT ORDERED BY DR WOLF TO ASSESS FOR RETROPERITENEAL BLEEDING. UNABLE TO TAKE PT AT THIS TIME D/T STABILITY. DISCUSSED c CHARGE NURSE. PT ON AIRBORNE PRECAUTIONS TO R/O COVID-19. c PERMISSION FROM PT, CALL PLACED TO JASBIR, SON, TO DISCUSS PT CARE. PT STATES THAT JASBIR IS HEALTHCARE DECISION MAKER. PT REQUESTING TO NOT BE INTUBATED, BUT HAVE CPR. D/T PT'S MENTATION, NO CHANGE MADE TO CODE STATUS AT THIS TIME. DISCUSSED c JASBIR. JASBIR STATES HE WILL COME TO THE [facility] TO DISCUSS CARE PLAN AND CODE STATUS. WILL CONTINUE TO MONITOR UNTIL REPORT TO ONCOMING NURSE.
--- NOTE | 2019-07-17 18:46 | NUR ---
NOTIFIED BY LAB, COVID-19 UNDETECTED. REMOVED PT FROM AIRBORNE ISOLATION. NOTIFIED CHARGE NURSE. PT COLOR IMPROVING. CONTINUES TO BE PALE BUT WARMER. PT ALSO MORE ALERT. 4TH UNIT OF PRBCS COMPLETE, FLUSHING AT THIS TIME. ORDER PLACED FOR REPEAT H&H AT 1945. PT CONTINUED TO HAVE SEAN VASQUES RESP. O2 SATS DECREASE AFTER PERIODS OF APNEA LASTING UP TO 30 SECS. PT THEN RETURNS TO BEING TACHYPNEC.
--- NOTE | 2019-07-17 19:30 | NUR ---
OUT OF AIRBORN ISOLATION PER DESMOND RN, NURSE ANESTHETIST, AND DOCTOR LUU
[2019-07-17 20:03] LABS: Hematocrit 29.1 % (37.0-53.0); Hemoglobin 9.9 g/dL (13.5-17.5)
--- NOTE | 2019-07-17 20:40 | NUR ---
DOCTOR LUCIANO SALCIDO'D CT OF ABD DUE TO KNOWING THAT PATIENT HAS GI BLEED.
--- NOTE | 2019-07-17 21:15 | NUR ---
PATIENT SLEEPING WHEN UNDISTURBED, AWAKENS TO SLIGHT STIMULI, FALLING BACK TO SLEEP MID CONVERSATION. ANSWERING SIMPLE QUESTIONS AND FOLLOWING DIRECTIONS. PATIENT HAVING SLEEP APNEA, ORDER OBTAINED FOR CPAP/BIPAP PRE PROTOCOL FROM DOCTOR HIEU. HYPOTENSION CONTINUES LEVOPHED AND DOBUTAMINE DRIPS CONTINUE TO TITRATE FOR MAP > 65. POST TRANSFUSION H&H STABLE, NEXT CBC IN AM. PATIENT CONTINUES TO PASS BLACK/BROWN LOOSE BM. PERMA CATH TO RIGHT CHEST WALL DRESSING CD&I.
[2019-07-18 03:25] LABS: BASOPHILS ABSOLUTE AUTO 0.11 K/mm3 (0.00-0.23); BASOPHILS PERCENT AUTO 1 % (0-2); EOSINOPHILS ABSOLUTE AUTO 0.95 K/mm3 (0.00-0.68); EOSINOPHILS PERCENT AUTO 5 % (0-6); Hematocrit 26.4 % (37.0-53.0); IMMATURE GRAN ABSOLUTE AUTO 0.27 K/mm3 (0.00-0.10); IMMATURE GRAN PERCENT AUTO 2 % (0-1); LYMPHOCYTES ABSOLUTE AUTO 2.71 K/mm3 (0.84-5.20); LYMPHOCYTES PERCENT AUTO 15 % (21-46); MONOCYTES ABSOLUTE AUTO 1.89 K/mm3 (0.16-1.47); MONOCYTES PERCENT AUTO 11 % (4-13); Mean Corpuscular HGB 29.5 pg (26.0-34.0); Mean Corpuscular HGB Conc 34.1 g/dL (31.5-36.5); Mean Platelet Volume 9.8 fL (9.1-12.4); NEUTROPHILS ABSOLUTE AUTO 11.76 K/mm3 (1.96-9.15); NEUTROPHILS PERCENT AUTO 67 % (41-73); NRBC ABSOLUTE 0.08 K/mm3 (0.00-0.02); NRBC Auto 0.5 /100 WBC (0.0-0.2); Platelet Count 271 K/mm3 (150-400); RDW Coefficient Variation 15.1 % (11.7-14.2); RDW Standard Deviation 46.9 fL (35.1-46.3); Red Blood Cell Count 3.05 M/mm3 (4.30-5.90); White Blood Cell Count 17.69 K/mm3 (4.00-11.30)
[2019-07-18 03:35] LABS: Mean Corpuscular Volume 87 fL (80-100)
[2019-07-18 03:43] LABS: Albumin, Blood 1.7 g/dL (3.4-5.0); Albumin/Globulin Ratio 0.5 (0.8-1.8); Bilirubin, Direct 0.1 mg/dL (0.0-0.3); Bilirubin, Indirect 0.3 mg/dL (0.1-0.7); Bilirubin, Total 0.4 mg/dL (0.1-1.0); Bun/Creatinine Ratio 20.4 (12.0-20.0); Calcium, Blood 7.4 mg/dL (8.5-10.1); Creatinine, Blood 4.47 mg/dL (0.60-1.20); Globulin, Blood 3.2 g/dL (2.2-4.0); Magnesium, Blood 1.9 mg/dL (1.6-2.4); Phosphorus, Blood 5.2 mg/dL (2.5-4.9); Potassium, Blood 3.6 mmol/L (3.5-5.5); Total Protein, Blood 4.9 g/dL (6.4-8.2)
--- NOTE | 2019-07-18 06:34 | NUR ---
SUMMARY PATIENT CONTINUES TO BE LETHARGIC, AWAKENS TO SLIGHT STIMULI, ATTEMPTS TO ASSIST WITH REPOSITIONING. BIPAP IN PLACE SET AT 10/5 FIO2 40% PATIENT PASSING SEVERAL BLACK/BROWN STOOLS T/O NIGHT. DOBUTAMINE CONTINUES AT 10MCG, LEVOPHED TITRATED DOWN TO 12 MCG, FOR HYPOTENSION. DOCTOR WOLF CALLED THIS AM, AND GIVEN AM LABS WITH NO CHANGES AT THIS TIME.
--- NOTE | 2019-07-18 07:15 | NUR ---
[place] of Care: Care assumed at 0700hr, bedside report received from [facility] shift RN. Patient sleeping, roused to verbal stimuli. Patient very drowsy when awake, quickly going back to sleep. Oriented to self and place, able to follow simple commands. Denies pain, discomfort, SOB, or dyspnea. VSS, spO2-100% on BiPAP at 10/6/40%. Levophed infusing at 12mcg/min, Dobutamine infusing at 10mcg/kg/min at shift change, BP stable. Heart rhythm shows sinus rhythm with BBB, rate-90's. PICC line to [facility] patent and intact, infusing without difficulty. Dialysis cath to lt upper chest, dressing intact, flushed by dialysis nurse on last dialysis treatment. Reported from [facility] shift RN that patient is anuric at baseline, attends in place, C/D/I. No s/s of active bleeding at this time. Received call from dialysis nurse [place] this morning, stated plan to dialyze patient at 1300hr today unless music video director has objections. Plan to talk with Dr. Bishop this morning to confirm he does not have contraindications to dialysis. This nurse concerned for hypotension issues r/t to dialysis, as patient is on x2 vasopressin medications at this time. Will continue to monitor.
[2019-07-18 13:13] LABS: Hematocrit 26.3 % (37.0-53.0); Hemoglobin 8.8 g/dL (13.5-17.5)
--- NOTE | 2019-07-18 18:09 | NUR ---
Shift Summary: Patient slept throughout shift. Continues to easily rouse to verbal stimuli, but falls back to sleep when not stimulated by staff. Appears more alert when awake throughout shift, able to stay awake and hold conversation with staff/family. Levophed titrated off throughout shift, Dobutamine gtt titrated from 10 to 7mcg/kg/min after Levophed titrated off. BP remains stable, systolic 90's- low 100's, MAP's- 60's. PICC line remains patent and intact, infusing without difficulty. X1 incontinent void, x2 small/smear black tarry BM's throughout shift. No s/s of active bleeding. On room air since this morning, spO2 remains 98-100%. Denies pain, discomfort, SOB, or dyspnea throughout shift. Call light in reach. Will continue to monitor until report to NOC shift RN.
--- NOTE | 2019-07-18 19:10 | NUR ---
review of pt needs and advance care planning with nursing. will notify when family in suggested polst be filled out.
--- NOTE | 2019-07-18 20:31 | NUR ---
PATIENT RESTING QUIETLY AWAKENS TO VERBAL STIMULI AND ABLE TO HOLD CONVERSATION, FALLING BACK TO SLEEP WHEN UNDISTURBED. DOBUTAMINE DRIP CONTINUES FOR HYPOTENSION. PERMA CATH IN PLACE TO RIGHT CHEST DRESSING CD&I. ATTENDS IN PLACE DUE TO OCCASIONAL INCONTINENCE.
[2019-07-18 21:07] LABS: Hematocrit 24.4 % (37.0-53.0); Hemoglobin 8.2 g/dL (13.5-17.5)
[2019-07-19 04:27] LABS: BASOPHILS ABSOLUTE AUTO 0.04 K/mm3 (0.00-0.23); BASOPHILS PERCENT AUTO 0 % (0-2); EOSINOPHILS ABSOLUTE AUTO 0.97 K/mm3 (0.00-0.68); EOSINOPHILS PERCENT AUTO 8 % (0-6); Hematocrit 23.7 % (37.0-53.0); Hemoglobin 7.8 g/dL (13.5-17.5); IMMATURE GRAN ABSOLUTE AUTO 0.19 K/mm3 (0.00-0.10); IMMATURE GRAN PERCENT AUTO 2 % (0-1); LYMPHOCYTES ABSOLUTE AUTO 1.47 K/mm3 (0.84-5.20); LYMPHOCYTES PERCENT AUTO 12 % (21-46); MONOCYTES ABSOLUTE AUTO 1.19 K/mm3 (0.16-1.47); MONOCYTES PERCENT AUTO 10 % (4-13); Mean Corpuscular HGB 29.4 pg (26.0-34.0); Mean Corpuscular HGB Conc 32.9 g/dL (31.5-36.5); Mean Corpuscular Volume 89 fL (80-100); Mean Platelet Volume 9.7 fL (9.1-12.4); NEUTROPHILS ABSOLUTE AUTO 8.32 K/mm3 (1.96-9.15); NEUTROPHILS PERCENT AUTO 68 % (41-73); NRBC ABSOLUTE 0.02 K/mm3 (0.00-0.02); NRBC Auto 0.2 /100 WBC (0.0-0.2); Platelet Count 222 K/mm3 (150-400); RDW Coefficient Variation 15.5 % (11.7-14.2); RDW Standard Deviation 49.3 fL (35.1-46.3); Red Blood Cell Count 2.65 M/mm3 (4.30-5.90); White Blood Cell Count 12.18 K/mm3 (4.00-11.30)
[2019-07-19 04:43] LABS: Bun/Creatinine Ratio 16.8 (12.0-20.0); Calcium, Blood 7.3 mg/dL (8.5-10.1); Creatinine, Blood 5.42 mg/dL (0.60-1.20); Potassium, Blood 3.2 mmol/L (3.5-5.5)
[2019-07-19 06:13] LABS: Magnesium, Blood 1.9 mg/dL (1.6-2.4); Phosphorus, Blood 4.9 mg/dL (2.5-4.9)
--- NOTE | 2019-07-19 06:47 | NUR ---
SUMMARY PATIENT SLEEPING T/O NIGHT WITH 2L/NC IN PLACE MAINTAINING BIOX >90% PATIENT AWAKENS TO SLIGHT STIMULI, SLIGHTLY FORGETFUL, BUT REORIENTATION EASILY. ASSISTING WITH REPOSITIONING IN BED. PATIENT CONTINUES TO PASS BLACK/BROWN STOOL. CONDOM CATH IN PLACE DUE TO PATIENT BEING INCONT OF BOWEL AND BLADDER. PATIENT ABLE TO FEED SELF SNACK AT APROX MIDNIGHT. DOBUTAMINE DRIP CONTINUES, TITRATING UP TO 8 MCG. LEVOPHED REMAINS OFF. PLAN FOR 1 UNIT PRBC WITH DIALYSIS TODAY.
--- NOTE | 2019-07-19 06:47 | NUR ---
DOCTOR LUCIANO GIVEN AM LABS, SEE NEW ORDERS
--- NOTE | 2019-07-19 07:30 | NUR ---
ASSUMED CARE: PT RESTING IN BED, ROUSES TO NAME DOBUTAMIN RUNNING AT 8 MCG/KG/MIN. DENIES NEEDS OR CONCERNS AT THIS TIME.
--- NOTE | 2019-07-19 09:37 | NUR ---
PT REQUESTED TO HOLD BREAKFAST UNTIL AFTER DIALYSIS. MEDS HELD DUE TO DIALYSIS, DIALIZE OUT.
[2019-07-19 10:21] LABS: Hematocrit 28.9 % (37.0-53.0); Hemoglobin 9.7 g/dL (13.5-17.5)
--- NOTE | 2019-07-19 12:30 | NUR ---
TRANSFERRED CARE: REPORT GIVEN TO REDDY SPENCE. PT CURRENTLY ON 7MCG/KG/MIN DOBUTAMINE WITH INSTRUCTIONS TO TITRATE DOWN. NEW RN AWARE. RA IN MID 90S AT THIS TIME.
--- NOTE | 2019-07-19 12:45 | NUR ---
ASSUMED CARE Assumed care of pt at 1230 from Neha BLAKELY. Pt on room air. SpO2 90% or greater. Pt on 7 mcg/kg/min. Pt A&O x 2. Eating lunch.
--- NOTE | 2019-07-19 14:00 | NUR ---
DR ORTIZ IN TO SEE PATIENT States plan for EGD tomorrow. Pt to be NPO after midnight.
--- NOTE | 2019-07-19 17:04 | NUR ---
SUMMARY Pt A&O x 2. Has not gotten OOB since this RN assumed care. Pt able to verbalize needs, follow commands, and answer questions. Pt remains on room air. ST per monitor. Pt remains on 6 mcg/kg/min. Unable to titrate below this rate due to hypotension. Will continue to reassess. Pt does not have any peripheral edema. 2+ distal pulses. Pt tolerating diet well. Pt had large gelatinous, liquid maroon bowel movement- incontinent. Pt given bed bath. Rectal tube placed. Pt tolerated placement well. Pt had dialysis today. No urine void noted since this RN assumed care. Pt has dialysis catheter to right chest wall. Bed in lowest position. Call light in reach. Will continue to closely monitor until care handoff and bedside report with oncoming RN.
--- NOTE | 2019-07-19 19:56 | NUR ---
PATIENT HYPOTENSIVE, DOBUTAMINE TITRATED UP TO 10MCG, SCHEDULED H&H DRAWN. AWAKENS TO SLIGHT STIMULI, ANSWERING ALL QUESTIONS, ABLE TO ASSIST WITH REPOSITIONING. INCONT OF LARGE THICK STICKY BLACK STOOL LEAKING AROUND RECTAL TUBE, RECTAL TUBE REMOVED AND ATTENDS PLACED WITH CONDOM CATH IN PLACE TO CATCH ANY URINE. DIALYSIS CATH TO RIGHT CHEST WITH DRESSING CD&I. SLEEP APNEA CONTINUES BIOX 90 - 96% ON RA
[2019-07-19 20:10] LABS: Hematocrit 20.8 % (37.0-53.0); Hemoglobin 6.8 g/dL (13.5-17.5)
--- NOTE | 2019-07-19 21:24 | NUR ---
DOCTOR JOANIE, DOCTOR LORENZA, AND DOCTOR ANGEL CALLED AND INFORMED OF DROP IN BP, DROP IN H&H, AND PATIENT PASSING LARGE LIQUID BLACK STOOLS. SEE NEW ORDERS. PATIENT NOW ON LEVOPHED 8 MCG, DOBUTAMINE 15 MCG, FIRST UNIT PRBC INFUSING. PATIENT LAST BM WAS LARGE DARK MAROON WITH CLOTS SEEN. PATIENT REMAINS AWAKE WITH STIMULI AND GOOD ORIENTATION.
--- NOTE | 2019-07-19 23:33 | NUR ---
DOCTOR ANGEL IN TO SEE PATIENT, AND GIVEN UPDATE. PLAN TO CHECK CBC, PT INR AFTER 3RD UNIT PRBC COMPLETE. SEE NEW ORDERS. CONTINUE WITH PLAN FOR UPPER GI IN THE MORNING.
[2019-07-20 01:05] LABS: Hematocrit 29.9 % (37.0-53.0); Hemoglobin 9.9 g/dL (13.5-17.5); Mean Corpuscular HGB 29.9 pg (26.0-34.0); Mean Corpuscular HGB Conc 33.1 g/dL (31.5-36.5); Mean Corpuscular Volume 90 fL (80-100); Mean Platelet Volume 9.7 fL (9.1-12.4); Platelet Count 184 K/mm3 (150-400); RDW Coefficient Variation 14.1 % (11.7-14.2); RDW Standard Deviation 45.2 fL (35.1-46.3); Red Blood Cell Count 3.31 M/mm3 (4.30-5.90); White Blood Cell Count 13.32 K/mm3 (4.00-11.30)
[2019-07-20 01:20] LABS: International Normalized Ratio 1.12; Prothrombin Time Results 11.9 Sec (9.7-11.5)
[2019-07-20 03:51] LABS: Hematocrit 28.6 % (37.0-53.0); Hemoglobin 9.8 g/dL (13.5-17.5)
[2019-07-20 04:06] LABS: Albumin, Blood 1.5 g/dL (3.4-5.0); Anion Gap 6 mmol/L (6-16); Blood Urea Nitrogen 48 mg/dL (8-24); Bun/Creatinine Ratio 13.2 (12.0-20.0); CO2, Blood 28 mmol/L (21-32); Calcium, Blood 6.7 mg/dL (8.5-10.1); Chloride, Blood 107 mmol/L (98-108); Creatinine, Blood 3.64 mg/dL (0.60-1.20); Glomerular Filtration Rate 17 (60-); Glucose, Blood 236 mg/dL (70-99); Magnesium, Blood 1.6 mg/dL (1.6-2.4); Phosphorus, Blood 2.5 mg/dL (2.5-4.9); Sodium, Blood 141 mmol/L (136-145)
--- NOTE | 2019-07-20 06:00 | NUR ---
DOCTOR LUCIANO LEGGETT TO SEE PATIENT, GIVEN UPDATE REGARDING GI BLEED AND RECEIVING 3 UNITS PRBC
--- NOTE | 2019-07-20 06:16 | NUR ---
SUMMARY PATIENT AWAKENS EASILY AND REMAINS A&O, SLIGHTLY FORGETFUL REGARDING DATE AT TIMES. GENERALIZED WEAKNESS, BUT ABLE TO REPOSITION SELF IN BED FOR COMFORT. PATIENT PASSING LIQUID TO SOFT TARRY STOOLS, STARTING BLACK/BROWN THEN BECOMING DARK MAROON WITH SMALL BLACK CLOTS. PATIENT SBP DROPPING TO LOW 80'S. DOBUTAMINE TITRATED UP TO 15 MCG, AND LEVOPHED RESTARTED AND PATIENT RECEIVED 3 UNITS PRBC. DOBUTAMINE IS NOW TITRATED DOWN TO 10 MCG, LEVOPHED IS AT 8 MCG. AND PATIENT HAS NOT HAD A MAROON STOOL FOR THE LAST 6 HRS. PATIENT ON 2L/NC DUE TO SLEEP APNEA TO MAINTAIN BIOX >90%
--- NOTE | 2019-07-20 07:00 | NUR ---
REC'D BEDSIDE REPORT FROM REDDY CONROY AND AM NOW ASSUMING CARE OF THIS PT.
--- NOTE | 2019-07-20 08:59 | NUR ---
DAY SURGERY TEAM/DR ORTIZ/ANESTHESIA HERE TO SCOPE PT.
--- NOTE | 2019-07-20 08:59 | NUR ---
PT IN ICU11 BED. VSS. History, Chart, Medications and Allergies reviewed before start of procedure. Patient confirms NPO status and agrees with scheduled surgery.
--- NOTE | 2019-07-20 10:35 | NUR ---
SPOKE WITH DR CALHOUN RE: F/U H+H, LOW NORM LEVELS OF PHOS/MG. SEE NEW ORDERS.
[2019-07-20 12:27] LABS: Hematocrit 27.9 % (37.0-53.0); Hemoglobin 9.5 g/dL (13.5-17.5)
--- NOTE | 2019-07-20 16:26 | NUR ---
SHIFT SUMMARY: PT IS SLEEPY T/O SHIFT BUT AWAKENS EASILY TO VERBAL STIMULI. PT ABLE TO ASSIST WITH TURNS IN THE BED AND WILL REPOSITION SELF. PT DENIES PAIN T/O SHIFT. PT SOMEWHAT [place] AND DOES NOT WEAR HEARING AIDS. PT FOLLOWS COMMANDS AND ANSWERS QUESTIONS APPROPRIATELY. LUNGS ARE CLEAR BUT DIMINISHED IN THE BILATERAL BASES. SP02 SATS >90% ON RA. PT DOES APPEAR TO HAVE SLEEP APNEA TO SOME DEGREE AND WILL OCCAS DESAT WHILE SLEEPING, HOWEVER, 02 SATS RETURN TO >90% QUICKLY. HR REGULAR, SR/ST- 90-100'S RANGE. PT REMAINS ON TITRATED DOBUTAMINE @ 9MCG/KG/MIN, AND LEVOPHED DECREASED FROM 8, NOW CURRENTLY AT 4MCG/MIN TO MAINTAIN BP'S. PT RESTARTED ON PO MEDS AND ABLE TO GIVE MIDODRINE X2 DOSES. SCD'S PLACED AND HOLDING INJECTABLE DVT PROPYLAXIS R/T GI BLEEDING. NO DIALYSIS TODAY, WILL REASSESS TOMORROW. ABD SOFT/ROUND/NO TENDERNESS/GAURDING TO PALPATION. BT'S ACTIVE X4 QAUDS. NO NAUSEA. PT HAD SCOPE DONE TODAY AND ACTIVE BLEEDING STOPPED. PT STARTED ON PO MEDS AND CLEAR LIQ DIET, WHICH PT IS TOLERATING WELL. PT DOES SEEM TO HAVE SOME DIFFICULTY SWALLOWING PO MEDS, PT REPORTS HE HAS HAD THIS PROBLEM, "FOR SOME TIME." PT TO REMAIN ON PROTONIX GTT FOR [address] ORTIZ. PT HAD 3 LG, LOOSE MELENA STOOLS PER BED. NO URINE IN CONDOM CATH BAG THIS SHIFT.
--- NOTE | 2019-07-20 19:33 | NUR ---
REPORTED OFF TO REDDY HURD WHOM IS ASSUMING CARE OF THIS PT.
--- NOTE | 2019-07-20 20:02 | NUR ---
ASSUMED CARE OF PT AT 1915. REPORT RECEIVED AT BEDSIDE. PT PRESENTS IN BED. IN NO APPARENT DISTRESS. NO S/S ACTIVE BLEEDING TO NOTE. CONTINUES ON DOBUTAMINE AND LEVOPHED FOR PRESSURE SUPPORT. WILL EVALUATE ABILITY TO TITRATE DRIPS DOWN. WILL REVIEW CHART AND PLAN OF CARE FOR THIS PT.
[2019-07-20 21:04] LABS: Hematocrit 26.5 % (37.0-53.0); Hemoglobin 9.1 g/dL (13.5-17.5)
--- NOTE | 2019-07-20 22:47 | NUR ---
HAVE BEEN ABLE TO TITRATE DOWN DOBUTAMINE TO 5 MCG'S/KG/MIN. PT HAS BEEN ABLE TO MAINTAIN HIS MAP >60. WILL CONTINUE TO ASSESS FOR FURTHER TITRATION. PT INCONTINENT TO DARK MAROON STOOL. PT ABLE TO ASSIST WITH TURNS AND CARE. WILL CONTINUE TO MONITOR PT.
--- NOTE | 2019-07-21 03:00 | NUR ---
PT HAS BEEN ABLE TO MOVE HIMSELF ABOUT IN BED ON HIS OWN. HAS MAINTAINED MAP > 60 WITH TITRATION OF LEVOPHED AND DOBUTAMINE DOWN. CONTINUES ON PROTONIX DRIP. PT HAS NO COMPLAINTS VOICED. WILL CONTINUE TO MONITOR.
[2019-07-21 03:48] LABS: Hematocrit 27.4 % (37.0-53.0); Hemoglobin 9.2 g/dL (13.5-17.5)
[2019-07-21 04:08] LABS: Albumin, Blood 1.6 g/dL (3.4-5.0); Anion Gap 6 mmol/L (6-16); Blood Urea Nitrogen 51 mg/dL (8-24); Bun/Creatinine Ratio 11.5 (12.0-20.0); CO2, Blood 27 mmol/L (21-32); Calcium, Blood 7.2 mg/dL (8.5-10.1); Chloride, Blood 107 mmol/L (98-108); Creatinine, Blood 4.44 mg/dL (0.60-1.20); Glomerular Filtration Rate 14 (60-); Glucose, Blood 75 mg/dL (70-99); Phosphorus, Blood 3.1 mg/dL (2.5-4.9); Potassium, Blood 3.7 mmol/L (3.5-5.5); Sodium, Blood 140 mmol/L (136-145)
--- NOTE | 2019-07-21 06:32 | NUR ---
CONTINUATION OF TITRATION OF PRESSORS WITH BEING ABLE TO STOP DOBUTAMINE, AND BRING LEVOPHED DRIP TO 3 MCG'S/MIN. WILL CONTINUE PROCESS. DR WOLF HAS COME IN TO SEE PT THIS AM. NO NEW ORDERS RECEIVED AT THIS TIME. PT HAS NOT HAD ANY ACTIVE ANDERSON BLEEDING THIS NIGHT. HAS PASSED MEDIUM AMOUNT OF OLD BLOOD EARLIER IN EVENING. WILL CONTINUE TO MONITOR PT, AND WILL REPORT OFF TO ONCOMING RN.
--- NOTE | 2019-07-21 08:00 | NUR ---
AM ASSESSMENT: REC'D BEDSIDE REPORT AND ASSUMED CARE OF THIS PT. PT IS ALERT AND ORIENTED TO PERSON/PLACE/FOLLOWS DIRECTIONS AND ANSWERS QUESTIONS SLOWLY BUT APPROPRIATELY. PT ABLE TO REPOSITION SELF WITH SOME ASSIST IN BE. PT DENIES ANY PAIN. SBA WITH TNX'S OOB. LUNGS ARE CLEAR T/O BUT DIMINISHED IN THE BILATERAL BASES WITH FINE INSPIRATORY CRACKLES IN THE RT BASES. PT CONTINUES TO BY DYSPNEIC WITH MINIMAL EXERTION. SP02 >90% ON RA WHILE AWAKE. PT DOES HAVE WITNESSED SLEEP APNEA AND SP02 DROPS TO LOW 90% RANGE AT TIMES WHILE SLEEPING, HOWEVER, SP02 RETURNS TO HIGH 90% QUICKLY ONCE AWAKE OR DEEP BREATHES. HR REGULAR, SR-90'S RANGE. PICC LINE IN THE LT UA W/ LEVOPHED @ 3MCG/MIN TO MAINTAIN MAP >65. WILL CONTINUE TO WEAN OFF TODAY. PERMA-CATH IN PLACE TO THE RT CW, DRSG C/D/I. ABD SOFT/ROUND/NON-TENDER. NO NAUSEA. BT'S HYPOACTIVE THIS AM IN ALL 4 QAUDS. PT CONTINUED ON CLEAR LIQ DIET, WILL DISCUSS ADVANCING WITH GI . PROTONIX GTT CONTINUED FOR [address] ORTIZ. ALEXANDRE CATH REMAINS IN PLACE FOR INCONTINENCE. PT REMAINS IN CONTINENT TO STOOL PER NOC RN, HOWEVER, NO BM OBSERVED YET THIS AM.
--- NOTE | 2019-07-21 11:04 | NUR ---
PATIENT AGREED TO CARE BY ECD. PATIENT TAKEN OFF LEVOPHED MAP >65. BED BATH AND LINEN CHANGE DONE. ASSISTED PATIENT OUT OF BED INTO CHAIR WITH MODERATE ASSISTANCE AND WAS SHORT OF BREATH WITH MINIMAL ACTIVITY. OXYGEN SATURATION >90% ON ROOM AIR.
[2019-07-21 14:20] LABS: Hematocrit 27.5 % (37.0-53.0); Hemoglobin 9.2 g/dL (13.5-17.5)
--- NOTE | 2019-07-21 16:25 | NUR ---
SHIFT SUMMARY: PT REMAINS ALERT AND ORIENTED TO PERSON/PLACE/SELF/FAMILY. FOLLOWS DIRECTIONS AND ANSWERS QUESTIONS APPROPRIATELY. PT IS [place] AND DOES NOT WEAR HEARING AIDS. PT ABLE TO MOVE SELF IN BED WITH MIN/MOD ASSIST. LUNGS ARE CLEAR, WITH INS CRACKLES IN THE BILATERAL BASES. PT CURRENTLY WEARING 2L 02 VIA N/C SINCE STARTING DIALYSIS, SATS WOULD OCCASIONALLY DIP INTO THE LOWER/MID 90'S RANGE. HR REGULAR, SR-80'S RANGE. NO MELENA THIS SHIFT. PT TOLERATING DIET WELL. MEDICAL STATUS, NO TELEMETRY.
--- NOTE | 2019-07-21 17:45 | NUR ---
REPORTED OFF TO REDDY PEÑALOZA WHOM WILL BE ASSUMING CARE OF THIS PT ONCE HE IS TNX'D.
--- NOTE | 2019-07-21 18:02 | NUR ---
PT TNX'D TO 364 PER W/C BY MARTÍN VILLEGAS. ALL PT BELONGINGS, MEDICAL SUPPLIES, AND CHART SENT WITH PT.
--- NOTE | 2019-07-21 19:13 | NUR ---
PT TRANSFER FROM ICU PT TRANSFERED FROM ICU BY W/C. PT A&O ON R/A, POWER PICC IN PLACE IN KAIA WITH PROTONICS INFUSNG. PT HAS DIALYSIS PORT IN RIGHT UPPER CHEST. PT COMPLAINED OF SHORTNESS OF BREATH BIOXED AT 98%. PT TRI ANY PAIN OR NAUSEA DURING THIS SHIFT WILL COUNTINUE TO MONITOR AND REPORT TO ONCOMING SHIFT.
[2019-07-22 04:39] LABS: Hematocrit 27.6 % (37.0-53.0); Hemoglobin 9.1 g/dL (13.5-17.5)
[2019-07-22 04:56] LABS: Albumin, Blood 1.7 g/dL (3.4-5.0); Anion Gap 5 mmol/L (6-16); Blood Urea Nitrogen 27 mg/dL (8-24); Bun/Creatinine Ratio 7.9 (12.0-20.0); CO2, Blood 30 mmol/L (21-32); Calcium, Blood 7.4 mg/dL (8.5-10.1); Chloride, Blood 107 mmol/L (98-108); Creatinine, Blood 3.43 mg/dL (0.60-1.20); Glomerular Filtration Rate 19 (60-); Glucose, Blood 65 mg/dL (70-99); Magnesium, Blood 1.8 mg/dL (1.6-2.4); Phosphorus, Blood 2.8 mg/dL (2.5-4.9); Potassium, Blood 3.6 mmol/L (3.5-5.5); Sodium, Blood 142 mmol/L (136-145)
--- NOTE | 2019-07-22 07:21 | NUR ---
SUMMARY: PT A/OX4 AND SPECIFIES NEEDS BUT IS [place]. HE'S SBA OOB BUT SLEPT MAJORITY OF SHIFT DENYING PAIN/COMPLAINTS. CONDOM CATH REMAINS IN PLACE AND IS PATENT/DRAINING. FULL LIQ DIET TOLERATED AND PILLS WHOLE W/WATER. RESPS E/U ON RA AND SPO2 WNL. PT DENIED CPAP THIS SHIFT. HD CATH PRESENT TO R.CW, DX C/D/I. PROTONIX GTT INFUSES AND PT W/O S/S ONGOING BLEEDING. HE'S DENIED ABDO PAIN AND ABDO IS SOFT/NONTENDER. NO ACUTE CHANGES. VSS/AFEBRILE. WCTM AND REPORT TO DAY RN.
--- NOTE | 2019-07-22 18:24 | NUR ---
SHIFT SUMMARY PT A/OX 3-4. MAKES NEEDS KNOWN. CALL LIGHT IN REACH. PROTONIX DRIP RUNNING CURRENTLY, LABS APPEAR TO BE STABLE AT THIS TIME. STILL VOIDING BLACK/TARRY STOOL. INCONTINENT EPISODES ADDRESSED NEEDED. PT HAD DIALYSIS THIS MORNING. NO ACUTE CHANGES NOTED THROUGHOUT SHIFT. LN TO CONTINUE TO MONITOR.
[2019-07-23 05:54] LABS: Hematocrit 28.9 % (37.0-53.0); Hemoglobin 9.4 g/dL (13.5-17.5)
[2019-07-23 06:28] LABS: Albumin, Blood 1.8 g/dL (3.4-5.0); Anion Gap 5 mmol/L (6-16); Blood Urea Nitrogen 20 mg/dL (8-24); Bun/Creatinine Ratio 5.9 (12.0-20.0); CO2, Blood 31 mmol/L (21-32); Calcium, Blood 7.9 mg/dL (8.5-10.1); Chloride, Blood 104 mmol/L (98-108); Creatinine, Blood 3.39 mg/dL (0.60-1.20); Glomerular Filtration Rate 19 (60-); Glucose, Blood 79 mg/dL (70-99); Phosphorus, Blood 3.1 mg/dL (2.5-4.9); Potassium, Blood 3.6 mmol/L (3.5-5.5); Sodium, Blood 140 mmol/L (136-145)
--- NOTE | 2019-07-23 06:37 | NUR ---
PT CAME TO FLOOR FROM THE ICU ON PREVIOUS SHIFT. ALERT AND ORIENTED. ONE ASSIST TO THE BEDSDE COMMODE NEEDED. HAS RIGHT CHEST DIALYSIS PORT. HAS LEFT ARM PICC, TLC. CALL LIGHT IN REACH
--- NOTE | 2019-07-23 18:28 | NUR ---
PT. UP IN CHAIR FOR DINNER. DAUGHTER AT BEDSIDE. PT. WENT TO DIALYSIS TODAY AROUND NOON AND CAME BACK AROUND 1530. PT. TOLERATING RENAL SOFT DIET. DAUGHTER INDICATES SHE WILL BE TAKING THE PATIENT HOME WITH HER. WOULD LIKE ASSIST OF DISCHARGE PLANNERS TO SET UP DIALYSIS IN [place]. TOLD DAUGHTER DISCHARGE PLANNERS WILL NOT BE BACK IN UNTIL THURSDAY. PT'S PRESENT RESIDENCE IS NOT SAFE DUE TO HYGIENE ISSUES, ACCORDING TO DAUGHTER. PT. WAS STAYING AT HIS SON, BUT THE SON RELATED PT. WOULD BE STAYING AT THE PT'S BROTHER. PATIENTS BROTHER DOES NOT WANT HIM THERE BECAUSE HE'S AFRAID HE MIGHT BRING THE CORONAVIRUS WITH HIM SINCE HE IS OUT AND ABOUT (DIALYSIS, DR'S APPTS ETC...).
--- NOTE | 2019-07-24 03:34 | NUR ---
AT SHIFT COMMENCE, DAUGHTER REQUESTED TO SPEAK TO THE MD RE DISCHARGING PT TO HER CARE SO SHE COULD CARE FOR HIM POST DISCHARGE. AND SAID SHE WOULD BE BACK THIS AM TO FOLLOW UP AND SET UP DIALYSIS CLOSER TO HOME. WILL PASS THIS ONTO AM NURSE FOR FOLLOW UP. PT HAS BEEN RESTING QUIETLY WITH FEW INTERRUPTIONS THIS SHIFT. CALL LIGHT IN REACH.
[2019-07-24 05:02] LABS: Hematocrit 26.9 % (37.0-53.0); Hemoglobin 8.8 g/dL (13.5-17.5)
[2019-07-24 05:35] LABS: Albumin, Blood 1.7 g/dL (3.4-5.0); Anion Gap 6 mmol/L (6-16); Blood Urea Nitrogen 19 mg/dL (8-24); Bun/Creatinine Ratio 5.4 (12.0-20.0); CO2, Blood 32 mmol/L (21-32); Calcium, Blood 7.7 mg/dL (8.5-10.1); Chloride, Blood 105 mmol/L (98-108); Creatinine, Blood 3.51 mg/dL (0.60-1.20); Glomerular Filtration Rate 18 (60-); Glucose, Blood 69 mg/dL (70-99); Phosphorus, Blood 3.3 mg/dL (2.5-4.9); Potassium, Blood 3.4 mmol/L (3.5-5.5); Sodium, Blood 143 mmol/L (136-145)
[2019-07-24 12:28] LABS: Hematocrit 28.1 % (37.0-53.0)
--- NOTE | 2019-07-24 13:32 | NUR ---
PATIENT DOWN TO DIALYSIS.
--- NOTE | 2019-07-24 16:48 | NUR ---
PRIOR TO GOING TO DIALYSIS HE HAD AN UNEVENTFUL MORNING OTHER THAN HE SAID HE FELT MORE SOB TODAY. I ALSO AUSCULTATED RALES BILATERALLY. WHEN I NOTIFIED OF THIS, HE ORDERED A 2HR DIALYSIS FOR TODAY. HE IS BACK FROM DIALYSIS NOW. HE TOLERATED IT WELL. HIS RESPIRATIONS ARE FAST BUT HIS SAT IS WNL. O2 PUT ON AT 1L FOR COMFORT. NO EDEMA. KNEE TEDS INITIATED. DENIED PAIN OR ANY DIZZINESS. HIS SON AND DIL WERE HERE AND CONFERENCED WITH . THEY SAID THEY GOT ALL THEIR QUESTIONS ANSWERED AND MORE.
[2019-07-24 18:15] LABS: Hematocrit 27.7 % (37.0-53.0)
--- NOTE | 2019-07-24 22:48 | NUR ---
PT RESTING QUIETLY AT INTERVALS, WAS AWAKENED FOR HS MEDS. DENIED PAIN OR DISCOMFORT. HOB ELEVATED FOR COMFORT AND REMAINS ON O2 PER NC. CALL LIGHT IN REACH. WILL CONTINUE TO MONITOR.
[2019-07-25 05:13] LABS: Hematocrit 27.4 % (37.0-53.0); Hemoglobin 8.9 g/dL (13.5-17.5)
[2019-07-25 05:23] LABS: Albumin, Blood 1.7 g/dL (3.4-5.0); Anion Gap 6 mmol/L (6-16); Blood Urea Nitrogen 25 mg/dL (8-24); Bun/Creatinine Ratio 5.6 (12.0-20.0); CO2, Blood 30 mmol/L (21-32); Calcium, Blood 7.8 mg/dL (8.5-10.1); Chloride, Blood 105 mmol/L (98-108); Glomerular Filtration Rate 14 (60-); Glucose, Blood 59 mg/dL (70-99); Magnesium, Blood 2.1 mg/dL (1.6-2.4); Potassium, Blood 3.6 mmol/L (3.5-5.5); Sodium, Blood 141 mmol/L (136-145)
--- NOTE | 2019-07-25 05:44 | NUR ---
PT HAS BEEN RESTING QUIETLY WITH FEW INTERRUPTIONS THIS SHIFT, CALL LIGHT IN REACH.
--- NOTE | 2019-07-25 18:17 | NUR ---
PATIENT IS ALERT AND ORIENTED AND COOPERATIVE WITH CARE. HE HAD DIALYSIS THIS MORNING. HE IS CONTINENT OF BOWEL AND BLADDER. SMALL BM TODAY. PICC LINE IN HIS KAIA. WORKED WITH PT TODAY, WALKED THE HALLS. WILL CONTINUE TO MONITOR
--- NOTE | 2019-07-25 20:23 | NUR ---
2022-TED WAS CURLED UP IN A BALL WHEN I WALKED INTO THE ROOM. HE STATED THAT WAS COMFORTABLE TO HIM. HE IS VERY [place], BUT DID WELL WHEN SPOKEN DIRECTLY TO. HE IS AOX3 COOPERATIVE, AND FOLLOWS DIRECTION. BLOOD SUGARS TAKEN NO COVERAGE INDICATED. LANTUS GIVEN PER ORDERS ALONG WITH OTHER MEDICATION. HE WAS ABLE TO SWALLOW WELL. DENIED ANY PAIN OR DISCOMFORT. LUNG SOUNDS CLEAR IN UPPER LOBES AND COURSE IN THE LOWER LOBES. COUGH IS OCCATIONAL, DRY. ENCOURAGE HIM TO SIT UP IN BED OR [place] IT WOULD BE EASIER TO BREATH, HE DENIED WANTING TO MOVE, STATES HE IS COMFORTABLE. HR IRREGULAR AT TIMES. WILL MONITOR. DENIES ANY CHEST PAIN OR PALPITATIONS. DENIED ANY NEEDS. CALL LIGHT IN REACH.
[2019-07-26 05:13] LABS: Hematocrit 31.2 % (37.0-53.0); Hemoglobin 10.2 g/dL (13.5-17.5)
[2019-07-26 05:29] LABS: Albumin, Blood 1.9 g/dL (3.4-5.0); Anion Gap 5 mmol/L (6-16); Blood Urea Nitrogen 23 mg/dL (8-24); Bun/Creatinine Ratio 5.7 (12.0-20.0); CO2, Blood 32 mmol/L (21-32); Calcium, Blood 7.8 mg/dL (8.5-10.1); Chloride, Blood 106 mmol/L (98-108); Creatinine, Blood 4.03 mg/dL (0.60-1.20); Glomerular Filtration Rate 16 (60-); Glucose, Blood 51 mg/dL (70-99); Magnesium, Blood 2.1 mg/dL (1.6-2.4); Phosphorus, Blood 3.8 mg/dL (2.5-4.9); Potassium, Blood 3.7 mmol/L (3.5-5.5); Sodium, Blood 143 mmol/L (136-145)
--- NOTE | 2019-07-26 06:54 | NUR ---
SHIFT SUMMARY: TED HAS A GOOD NIGHT. HE SLEPT MOST OF THE SHIFT. ONLY AWAKENED WHEN STAFF WENT IN FOR INTERVENTIONS. HE WAS ABLE TO REPOSITION SELF WITH SOME ASSISTANCE. BLOOD SUGAR WAS 170 BUT DID DROP TO 58 THIS AM. HE ONLY GOT 20 UNITS OF LANTUS. VS HAVE REMAINED WNL. NO PAIN WAS NOTED. NO OTHER ACUTE CHANGES TO NOTE THIS SHIFT. WILL REPORT TO DAY SHIFT.
--- NOTE | 2019-07-26 07:11 | NUR ---
PATIENT'S MORNING BG WITH BLOOD DRAW WAS 51. PATIENT DRANK A SMALL GLASS OF ORANGE JUICE TO TREAT THIS LOW BLOOD GLUCOSE LEVEL.
--- NOTE | 2019-07-26 17:22 | NUR ---
PATIENT IS ALERT AND ORIENTED AND COOPERATIVE WITH CARE. HE IS ON 1L O2 VIA NC. NO DIALYSIS TODAY. 1PA TO THE BSC. SOUNDS LIKE THE PLAN IS TO FIND HIM A BED AT A SNF. NO NEW COMPLAINTS TODAY. WILL CONTINUE TO MONITOR
--- NOTE | 2019-07-26 19:30 | NUR ---
1930-TED WAS SITTING UP IN BED WATCHING TV. HE IS IN A GOOD MOOD. REPORTS THEY ARE LOOKING TO SEND HIM TO REHAB. HE KNOWS IT IS SOMEWHERE HE CAN GET STRONGER. DENIES ANY PAIN OR DISCOMFORT. LUNG SOUNDS STILL DIMINISHED THROUGHOUT. OXYGEN NC AT 2 LITERS. NO SOB AT THIS TIME. STILL ABLE TO GET UP TO BSC INDPENDENTLY. CALL LIGHT IN REACH. WILL CONTINUE TO MONITOR.
[2019-07-27 04:40] LABS: Hematocrit 31.9 % (37.0-53.0); Hemoglobin 10.3 g/dL (13.5-17.5)
[2019-07-27 04:57] LABS: Albumin, Blood 1.9 g/dL (3.4-5.0); Anion Gap 5 mmol/L (6-16); Blood Urea Nitrogen 30 mg/dL (8-24); Bun/Creatinine Ratio 6.2 (12.0-20.0); CO2, Blood 30 mmol/L (21-32); Calcium, Blood 7.8 mg/dL (8.5-10.1); Chloride, Blood 107 mmol/L (98-108); Creatinine, Blood 4.83 mg/dL (0.60-1.20); Glomerular Filtration Rate 13 (60-); Glucose, Blood 61 mg/dL (70-99); Magnesium, Blood 2.2 mg/dL (1.6-2.4); Phosphorus, Blood 3.4 mg/dL (2.5-4.9); Potassium, Blood 3.8 mmol/L (3.5-5.5); Sodium, Blood 142 mmol/L (136-145)
--- NOTE | 2019-07-27 06:33 | NUR ---
SHIFT SUMMARY: TED HAD A GOOD NIGHT, SLEPT MOST OF THE SHIFT. VS WNL, NO PAIN, SATS GOOD. BLOOD SUGARS IN MID 100'S RANGE THEN DROPPED DOWN TO 61 THIS AM ON MORNING LABS. GAVE OJ TO HELP BRING HIM UP. DR. WOLF SAW HIM TODAY AND SAID HE WILL ORDER DIALYSIS. OTHER THEN THAT HE HAS REMAINED QUITE IN HIS ROOM WITH NO ACUTE CHANGES. CALL LIGHT IN REACH.
--- NOTE | 2019-07-27 08:00 | NUR ---
07/27/19 0800 SALVATORE PAIZ LATE ENTRY 07/20/19 0903 History, Chart, Medications and Allergies reviewed before start of procedure. 3-LEAD EKG REVIEWED WITH PHYSICIAN PRIOR TO START OF PROCEDURE. O2 VIA N/C INTACT THROUGHOUT SEDATION/PROCEDURE. MONITOR INTACT WITH CONTINUOUS PULSE OXIMETRY AND INTERMITTENT BP. MAC WITH DR. SALAZAR.
--- NOTE | 2019-07-27 12:49 | NUR ---
HE IS EATING LUNCH AFTER DIALYSIS. HE STARTED THE DAY WITH BREAKFAST, SCHEDULED AM MEDICATIONS, A BOWEL MOVEMENT THEN OFF TO DIALYSIS. HE IS GETTING HIS IRON INFUSION NOW. NO COMPLAINTS EXCEPT HE SAID DIALYSIS FELT LONG TODAY AND HE IS TIRED.
--- NOTE | 2019-07-27 17:34 | NUR ---
DIALYSIS TOOK OFF 1500 MLS TODAY. HE HAD A GOOD NAP AFTERWARD THEN WORKED WITH PT AND AMBULATED THE BANKS. HE EATS CASSIE WELL AND HAD 2 BM'S TODAY. HE HAS NO COMPLAINTS.
[2019-07-28 05:02] LABS: Hematocrit 30.9 % (37.0-53.0)
[2019-07-28 05:57] LABS: Magnesium, Blood 2.2 mg/dL (1.6-2.4)
[2019-07-28 05:58] LABS: Albumin, Blood 1.9 g/dL (3.4-5.0); Anion Gap 4 mmol/L (6-16); Blood Urea Nitrogen 21 mg/dL (8-24); Bun/Creatinine Ratio 5.1 (12.0-20.0); CO2, Blood 33 mmol/L (21-32); Calcium, Blood 7.8 mg/dL (8.5-10.1); Chloride, Blood 105 mmol/L (98-108); Creatinine, Blood 4.14 mg/dL (0.60-1.20); Glomerular Filtration Rate 15 (60-); Glucose, Blood 50 mg/dL (70-99); Phosphorus, Blood 3.2 mg/dL (2.5-4.9); Potassium, Blood 3.5 mmol/L (3.5-5.5); Sodium, Blood 142 mmol/L (136-145)
--- NOTE | 2019-07-28 06:56 | NUR ---
SHIFT SUMMARY PT IS A 74 Y/O MALE, ADMITTED FOR ACUTE RESPIRATORY FAILURE. HE IS A&O X 3, AND A SBA IN THE ROOM. PT DENIED ANY COMPLAINTS OF PAIN, NAUSEA OR SOB. VITAL SIGNS STABLE. PT SLEPT WELL THROUGH THE NIGHT. NO ACUTE CHANGES IN PT CONDITION NOTED. REPORT GIVEN TO ONCOMING RN.
--- NOTE | 2019-07-28 13:18 | NUR ---
HE IS EATING PRETTY WELL INSPITE OF A POOR APPETITE. HE DENIES ANY PAIN. NO DIALYSIS PLANNED FOR TODAY SO HE RECEIVED HIS IRON INFUSION THIS AM SCHEDULED. R PERMACAT SITE WNL. NO EDEMA. HE HAS BEEN ON ROOM AIR FOR A FEW HRS. A RECENT RA BIOX WAS 92%. HE OFTEN APPEARS SOB BUT DENIES THAT HE IS. HE HAS TALKED TO FAMILY OFF AND ON TODAY ON THE PHONE. VSS.
[2019-07-28] MEDS ORDERED: BASAGLAR K100 UNIT/1 SC (15:38)
[2019-07-28] MEDS ORDERED: PANT40 PO (15:41)
[2019-07-28] MEDS ORDERED: ATOR40TA PO (15:41)
[2019-07-28] MEDS ORDERED: Vitamin D2000 UNIT PO (15:42)
[2019-07-28] MEDS ORDERED: FERSU300 PO (15:45)
--- NOTE | 2019-07-28 17:35 | NUR ---
DISCHARGED TO HOME WITH BELONGINGS AND INSTRUCTIONS. I GAVE INSTRUCTIONS TO HIM AND HIS FAMILY MEMBER. PICC LINE WAS DC'D. HE TOOK A SHOWER WITH PERMACATH COVERED WITH OPSITE. HE CONTINUED TO HAVE NO COMPLAINTS AND WAS ON ROOM AIR MOST OF THE DAY.
== END 2019-07-28 17:35 | disposition home health service (06) | DRG 377 ==
LOC: ER 10:48 → MEDS 12:46 → PCU 12:46 → ICUW 12:46 → PCU 13:24 → ICUW 13:25 → PCU 17:37 → ICUW 07-17 09:38 → MEDS 07-21 17:57
PROVIDERS: Emergency Medicine; Internal Medicine; Internal Medicine Critical Care Medicine; Internal Medicine Gastroenterology; Internal Medicine Nephrology; ADMIT Internal Medicine
PROC: 30233N1 Transfusion of Nonautologous Red Blood Cells into Peripheral Vein, Percutaneous Approach (ICD-10-PCS; 2019-07-17)
PROC: 5A1D70Z Performance of Urinary Filtration, Intermittent, Less than 6 Hours Per Day (ICD-10-PCS; 2019-07-18)
PROC: 5A1D70Z Performance of Urinary Filtration, Intermittent, Less than 6 Hours Per Day (ICD-10-PCS; 2019-07-19)
PROC: 5A1D70Z Performance of Urinary Filtration, Intermittent, Less than 6 Hours Per Day (ICD-10-PCS; 2019-07-20)
PROC: 0W3P8ZZ Control Bleeding in Gastrointestinal Tract, Via Natural or Artificial Opening Endoscopic (ICD-10-PCS; principal; 2019-07-20 08:30)
PROC: 5A1D70Z Performance of Urinary Filtration, Intermittent, Less than 6 Hours Per Day (ICD-10-PCS; 2019-07-21)
PROC: 5A1D70Z Performance of Urinary Filtration, Intermittent, Less than 6 Hours Per Day (ICD-10-PCS; 2019-07-22)
PROC: 5A1D70Z Performance of Urinary Filtration, Intermittent, Less than 6 Hours Per Day (ICD-10-PCS; 2019-07-23)
PROC: 3E033XZ Introduction of Vasopressor into Peripheral Vein, Percutaneous Approach (ICD-10-PCS; 2019-07-23)
PROC: 5A1D70Z Performance of Urinary Filtration, Intermittent, Less than 6 Hours Per Day (ICD-10-PCS; 2019-07-24)
PROC: 5A1D70Z Performance of Urinary Filtration, Intermittent, Less than 6 Hours Per Day (ICD-10-PCS; 2019-07-25)
DX: K26.4 Chronic or unspecified duodenal ulcer with hemorrhage (principal); J96.21 Acute and chronic respiratory failure with hypoxia; I50.23 Acute on chronic systolic (congestive) heart failure; N18.6 End stage renal disease; J18.9 Pneumonia, unspecified organism; R57.8 Other shock; I13.2 Hypertensive heart and chronic kidney disease with heart failure and with stage 5 chronic kidney disease, or end stage renal disease; D62 Acute posthemorrhagic anemia; K44.9 Diaphragmatic hernia without obstruction or gangrene; Z99.2 Dependence on renal dialysis; I25.10 Atherosclerotic heart disease of native coronary artery without angina pectoris; D63.1 Anemia in chronic kidney disease; I25.2 Old myocardial infarction; Z95.5 Presence of coronary angioplasty implant and graft; Z79.82 Long term (current) use of aspirin; E11.22 Type 2 diabetes mellitus with diabetic chronic kidney disease; I25.5 Ischemic cardiomyopathy
CPT/HCPCS: 0099U; 36415; 36430; 36569; 71045; 71260; 80048; 80053; 80069; 80076; 80202; 82248; 82272; 82728; 82947; 83010; 83540; 83550; 83605; 83615; 83735; 84100; 84145; 85014; 85018; 85025; 85027; 85610; 85730; 86850; 86900; 86901; 86923; 87040; 90686; 93005; 93010; 94640; 94660; 94760; 96361; 96365; 96375; 97110; 97116; 97162; 99285-25; A9270-GY; C1751; C1894; C9113; J0171; J0456; J0696; J0881; J1250; J1430; J1580; J1644; J2405; J2704; J2916; J3370; J3475; J3480; J7030; J7050; J7060; P9016; Q9967; U0001

== ENCOUNTER 2020-02-01 06:31 | Day surgery (SDC) | payer OTHER ==
[~2020-02-01] VITALS: Ht 170.2 cm; Wt 80.0 kg
[~2020-02-01 06:31] MED LIST changes: +ATOR40TA PO; +BASAGLAR K100 UNIT/1 SC; +FERSU300 PO; +MIRALAX17 GM PO; +OMEP20ER PO; +PANT40 PO; +TOUJEO SOL300 UNIT/1 SC; +Vitamin D2000 UNIT PO
--- NOTE | 2020-02-01 08:36 | NUR ---
PT RETURNED TO RECOVERY ROOM IN RECLINER. RACW PERMACATH SOFT SITE SOFT NON-TENDER WITH NO HEMATOMA, NO BLEEDING. PT DENIES ANY PAIN. PT EATING BREAKFAST WITH CALL LIGHT IN REACH.
--- NOTE | 2020-02-01 09:09 | NUR ---
DISCHARGE INSTRUCTIONS REVIEWED ALL QUESTIONS ANSWERED. 20 G IV DISCONTINUED FROM LEFT AC WITH INTACT CANNULA. PT ESCORTED OUT VIA WHEELCHAIR ESCORT.
== END 2020-02-01 09:22 | disposition home or self-care (01) ==
LOC: MHTC 06:31
DX: Z45.2 Encounter for adjustment and management of vascular access device (principal); E11.22 Type 2 diabetes mellitus with diabetic chronic kidney disease; I13.2 Hypertensive heart and chronic kidney disease with heart failure and with stage 5 chronic kidney disease, or end stage renal disease; I25.10 Atherosclerotic heart disease of native coronary artery without angina pectoris; N18.6 End stage renal disease; I50.22 Chronic systolic (congestive) heart failure; Z99.2 Dependence on renal dialysis; D63.1 Anemia in chronic kidney disease; Z87.891 Personal history of nicotine dependence; Z79.899 Other long term (current) drug therapy; Z79.84 Long term (current) use of oral hypoglycemic drugs
CPT/HCPCS: 36581; 37248; 75827; C1725; C1750; C1769; J1644; J2250; J3010; J7030; J7040; Q9967

== ENCOUNTER 2020-03-29 08:32 | Day surgery (SDC) | payer OTHER ==
[~2020-03-29] VITALS: Ht 170.2 cm; Wt 77.3 kg
[2020-03-29] MEDS ORDERED: METO25ER PO (09:03)
[2020-03-29] MEDS ORDERED: PANT40 PO (09:04)
[2020-03-29] MEDS ORDERED: FURO80 PO (09:04)
[2020-03-29] MEDS ORDERED: ZOLOFT50 MG PO (09:05)
--- NOTE | 2020-03-29 14:30 | NUR ---
PATIENT DRESSEDNWITH ASSISTENCE. SITTING IN CHAIR. COMFORTABLE .
--- NOTE | 2020-03-29 14:45 | NUR ---
PATIENT A&O. DRESSING DRY AND INTACT TO RIGHT RADIAL ARTERY SITE, WRIST BOARD IN PLACE. IV DCED WITH CATHETER IN TACT. PATIENT DISCHARGED TO [facility]. TAKEN TO CAR VIA WHEEL CHAIR BY KYA BLAKELY.
== END 2020-03-29 22:54 | disposition home or self-care (01) ==
LOC: MHTC 08:32
DX: Z49.01 Encounter for fitting and adjustment of extracorporeal dialysis catheter (principal); I13.2 Hypertensive heart and chronic kidney disease with heart failure and with stage 5 chronic kidney disease, or end stage renal disease; E11.22 Type 2 diabetes mellitus with diabetic chronic kidney disease; N18.6 End stage renal disease; I50.22 Chronic systolic (congestive) heart failure; D63.1 Anemia in chronic kidney disease; I25.10 Atherosclerotic heart disease of native coronary artery without angina pectoris; Z95.5 Presence of coronary angioplasty implant and graft; Z79.4 Long term (current) use of insulin; Z79.899 Other long term (current) drug therapy; Z51.5 Encounter for palliative care
CPT/HCPCS: 76937; 82947; 99152; 99153; C1725; C1769; C1887; C1894; J1644; J2250; J3010; J7030; J7040; Q9967

== ENCOUNTER 2020-04-18 12:21 | Day surgery (SDC) | payer OTHER ==
[~2020-04-18] VITALS: Ht 170.2 cm; Wt 77.0 kg
[~2020-04-18 12:21] MED LIST changes: +FURO80 PO; +METO25ER PO; +ZOLOFT50 MG PO
--- NOTE | 2020-04-18 14:14 | NUR ---
1400 ASSUMED CARE OF PATIENT, WAITING FOR PROCEDURE TIME. REVIEWED CHART AND PATIENT HAS NO C/O PAIN OR NEED FOR RESTRROM AT THIS TIME. CALL LIGHT IN REACH.
--- NOTE | 2020-04-18 18:13 | NUR ---
PATIENT FINISHED WITH MEAL. PATIENT UP AND DRESSED. PIV REMOVED FROM THE LEFT AC AND PRESSURE DRESSING APPLIED. NO PAIN. DRESSING TO THE RIGHT UPPER ARM NO BLEEDING, LIGHT THRILL NOTED.
--- NOTE | 2020-04-18 18:28 | NUR ---
REVIEWED ALL DISCHARGE INSTRUCTIONS WITH PATIENT AND GAVE COPY OF INSTRUCTIONS INCLUDING A MEDICATION RECONCILATION. THE PATIENT VERBALIZED THAT HE IS TO RESTART HIS [place] TONIGHT ORDERED BY DR. NEWBERRY. ALL BELONGINGS IN THE PATIENT POSSESSION. DISCHARGED VIA WHEELCHAIR TO FAMILY CAR AND DAUGHTER RYAN. ALSO REVIEWED DISCHARGE INSTRUCTIONS WITH THE DAUGHTER AT THE CAR.
== END 2020-04-18 22:38 | disposition home or self-care (01) ==
LOC: MHTC 12:21
DX: I13.2 Hypertensive heart and chronic kidney disease with heart failure and with stage 5 chronic kidney disease, or end stage renal disease (principal); E11.22 Type 2 diabetes mellitus with diabetic chronic kidney disease; N18.6 End stage renal disease; I50.9 Heart failure, unspecified; D63.1 Anemia in chronic kidney disease; I25.10 Atherosclerotic heart disease of native coronary artery without angina pectoris; Z95.5 Presence of coronary angioplasty implant and graft; Z79.4 Long term (current) use of insulin; Z49.02 Encounter for fitting and adjustment of peritoneal dialysis catheter; Z79.899 Other long term (current) drug therapy; Z20.828 Contact with and (suspected) exposure to other viral communicable diseases; Z91.048 Other nonmedicinal substance allergy status
CPT/HCPCS: 82947; 99152; 99153; C1769; C1887; C1894; J1644; J2250; J3010; J7030; Q9967